=== PATIENT | female | born 1965 | race Caucasian/White ===

== ENCOUNTER → 2019-09-13 09:38 | Outpatient (BNVA) | payer MEDICARE, MEDICAID, SELFPAY | PROVIDERS: Family Provider Family Medicine; PCP Family Medicine; Visit Provider Anesthesiology | DX: G89.29 Other chronic pain (principal); M54.5 Low back pain; F17.210 Nicotine dependence, cigarettes, uncomplicated; Z79.891 Long term (current) use of opiate analgesic; Z71.6 Tobacco abuse counseling | CPT/HCPCS: 99214 ==

== ENCOUNTER → 2020-01-08 14:25 | Outpatient (BNVA) | payer MEDICARE, MEDICAID, SELFPAY | PROVIDERS: Family Provider Family Medicine; PCP Family Medicine; Visit Provider Anesthesiology | DX: G89.29 Other chronic pain (principal); M54.5 Low back pain; M53.3 Sacrococcygeal disorders, not elsewhere classified; F17.210 Nicotine dependence, cigarettes, uncomplicated; Z79.891 Long term (current) use of opiate analgesic; Z71.6 Tobacco abuse counseling | CPT/HCPCS: 99214 ==

== ENCOUNTER → 2020-02-13 09:03 | Outpatient (BNVA) | payer MEDICARE, MEDICAID, SELFPAY | PROVIDERS: Family Provider Family Medicine; PCP Family Medicine; Visit Provider Anesthesiology | DX: G89.29 Other chronic pain (principal); M53.3 Sacrococcygeal disorders, not elsewhere classified; F17.210 Nicotine dependence, cigarettes, uncomplicated | CPT/HCPCS: 77003; G0260; J1030; J3490 ==

== ENCOUNTER 2020-03-14 19:14 | Emergency (ER) | payer MEDICARE, MEDICAID, SELFPAY ==
[2020-03-14 19:21] VITALS: BP 129/87; PULSE 90; RESP 18; TEMP 36.7; O2SAT 95; BMI 29.2
--- NOTE | 2020-03-14 19:26 | XRR_ITS ---
PROCEDURE INFORMATION: Exam: XR Right Hand Exam date and time: 03/14/2020 7:26 PM Age: 54 years old Clinical indication: Injury or trauma; Fall; Initial encounter; Blunt trauma (contusions or hematomas; Finger; Right; Thumb TECHNIQUE: Imaging protocol: XR Right hand. Views: 3 or more views. COMPARISON: No relevant prior studies available. FINDINGS: Bones/joints: Negative for acute bony abnormality. 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 Soft tissues: Normal. XR/XR hand RT min 3V* [id number] IMPRESSION: No acute bone abnormality
--- NOTE | 2020-03-14 19:30 | XRR_ITS ---
PROCEDURE INFORMATION: Exam: XR Left Foot Complete Exam date and time: 03/14/2020 7:51 PM Age: 54 years old Clinical indication: Injury or trauma; Fall; Initial encounter; Abrasion; Foot; Left TECHNIQUE: Imaging protocol: XR Left foot. Views: 3 or more views. COMPARISON: No relevant prior studies available. FINDINGS: Bones/joints: Negative for acute bony abnormality Soft tissues: Normal. XR/XR foot LT min 3V* [id number] IMPRESSION: No acute findings.
--- NOTE | 2020-03-14 19:33 | ED_ITS ---
HPI - Fall General: Chief Complaint: Fall Stated Complaint: RIGHT HAND INJURY Time Seen by Provider: 03/14/20 19:28 Source: patient Mode of arrival: ambulatory Limitations: no limitations History of Present Illness: HPI Narrative: She is a 54-year-old female who states she fell down some stairs at 3 today. She injured her left low hand and right hand. She does have a hematoma at the base of her right thumb. States pain is sharp in nature and rates it a 5 out of 10. She did hit her head but denies any loss of consciousness and denies any vomiting. Denies any neck pain. Associated symptoms-after fall: Denies abdominal pain, chest pain or headache(s) Review of Systems Const: Denies: fever(s), chills, body aches or change in appetite Eyes: Denies: blurry vision or eye discomfort ENMT: Denies: throat pain or dental pain Card: Denies: chest pain Resp: Denies: dyspnea GI: Denies: abdominal pain, nausea, vomiting or diarrhea : Denies: dysuria Musc: Reports: extremity pain Skin/Breast: Denies: rash Neuro: Denies: headache(s) Psych: Denies: depression Yousif/Lymph: Denies: easy bruising All/Imm: Denies: urticaria PFSH ED PFSH: Medical History Chronic lumbosacral pain Chronic SI joint pain Encounter for long-term use of opiate analgesic Opioid contract exists Smoker Tobacco abuse counseling Tonsillectomy planned Surgical History H/O neck surgery H/O tubal ligation History of appendectomy History of carpal tunnel surgery of right wrist Family History Other Bleeding disorder CAD (coronary artery disease) Cancer Social History Smoking and tobacco status: current every day smoker cigarettes Packs smoked per day: 0.5 Alcohol intake: never Physical Exam Const: COMMON NORMALS: no acute distress, patient oriented x3 and healthy appearing HENMT: COMMON NORMALS: normocephalic and atraumatic HEAD & SCALP: normocephalic and atraumatic Eye: COMMON NORMALS: Equal, round and reactive pupils present and EOMs intact bilaterally PUPIL: Yes Equal, round and reactive pupils present Neck/C-Spine: COMMON NORMALS: full ROM and supple Chest: COMMONS NORMALS: normal inspection of the chest and normal palpation of entire chest wall Resp: COMMON NORMALS: normal respiratory effort, No retractions, No use of accessory muscles and clear to auscultation bilaterally AUSCULTATION: clear to auscultation bilaterally Cardio: COMMON NORMALS: regular rate, regular rhythm and No murmurs present (Cardio) RATE: regular rate RHYTHM: regular rhythm GI: COMMON NORMALS: Normal to inspection, nondistended, normoactive bowel sounds present, Soft to palpation, non-tender and no masses PALPATION: Yes Soft to palpation Extremity: COMMON NORMALS: full ROM NARRATIVE EXTREMITY EXAM: Tenderness over left great toe. Hematoma at the base of the right thumb with tenderness. Patient has full range of motion of her hand Neuro: COMMON NORMALS: patient oriented x3, moves all extremities and no focal motor deficits Psych: COMMON NORMALS: mental status grossly normal, Normal thought process present and cooperative THOUGHT PROCESS: Normal thought process present Skin: COMMON NORMALS: no rashes or lesions noted and no wounds GENERAL SKIN EXAM: no rashes or lesions noted Course 2 Vital Signs: Vital signs: Vital Signs Temperature 98.1 F 03/14/20 19:21 Pulse Rate 90 03/14/20 19:21 Respiratory Rate 18 03/14/20 19:21 Blood Pressure 129/87 03/14/20 19:21 Pulse Oximetry 95 03/14/20 19:21 MDM - Fall [facility] Narrative: Medical decision making narrative: Patient presents here with hand and toe contusion from a fall. Patient's x-ray here shows no fracture. She had no major head injury. Patient is stable for discharge and is to return if worsening. Imaging Data^: xr r hand: Attestation: I personally reviewed and interpreted this imaging study as follows: My impression: no acute abnormality xrl foot: Attestation: I personally reviewed and interpreted this imaging study as follows: My impression: no acute abnormality Discharge Plan Discharge Patient Disposition: Home Clinical Impression: Fall Qualifiers: Encounter type: initial encounter Qualified Code(s): W19.XXXA - Unspecified fall, initial encounter Contusion of hand, right Qualifiers: Encounter type: initial encounter Qualified Code(s): S60.221A - Contusion of right hand, initial encounter Condition: Stable Prescriptions: No Action meloxicam 15 mg tablet 15 mg PO DAILY 30 Days Qty: 30 RF: 1 morphine 15 mg tablet 15 mg PO BID PRN (Reason: pain) 30 Days Qty: 60 RF: 0 morphine 15 mg tablet 15 mg PO BID PRN (Reason: pain) 30 Days Qty: 60 RF: 0 omeprazole 20 mg capsule,delayed release(DR/EC) 20 mg PO DAILY RF: 0 ropinirole 1 mg tablet 1 mg PO .BEDTIME RF: 0 citalopram [Celexa] 40 mg tablet 40 mg PO DAILY RF: 0 lisinopril 20 mg tablet 20 mg PO BID RF: 0 clonidine HCl 0.2 mg tablet 0.2 mg PO BID PRNRF: 0 aspirin [Adult Aspirin Regimen] 81 mg tablet,delayed release (DR/EC) 81 mg PO DAILY RF: 0 Discharge Orders: Discharge Order (Routine); Ordered 03/14/20 Ordered By: Mindy Salgado Referrals: Willy Uribe Jr, MD [Primary Care Provider] - 1-3 days Discharge Diet: Advance as tolerated Discharge Activity: Resume usual activity Patient Instructions: Hand Sprain (ED), Fall Prevention (ED) Coding Level of Care Code ED [employer] for Saurabh Fwjosé luis Exam Comprehensive
[2020-03-14] MEDS: naproxen 500 mg Tablet PO (19:36)
== END 2020-03-14 20:00 | disposition home or self-care (01) ==
PROVIDERS: Emergency Provider Emergency Medicine; PCP Family Medicine
DX: S60.221A Contusion of right hand, initial encounter (principal); Z79.82 Long term (current) use of aspirin; F17.210 Nicotine dependence, cigarettes, uncomplicated; W10.8XXA Fall (on) (from) other stairs and steps, initial encounter
CPT/HCPCS: 12345; 73130; 73630; 99281; 99283

== ENCOUNTER → 2020-03-19 09:56 | Outpatient (BNVA) | payer MEDICARE, MEDICAID, SELFPAY | PROVIDERS: PCP Family Medicine; Visit Provider Nurse Practitioner | DX: G89.29 Other chronic pain (principal); M54.5 Low back pain; M53.3 Sacrococcygeal disorders, not elsewhere classified; M70.61 Trochanteric bursitis, right hip; Y93.9 Activity, unspecified; F17.210 Nicotine dependence, cigarettes, uncomplicated; Z79.891 Long term (current) use of opiate analgesic; Z71.6 Tobacco abuse counseling | CPT/HCPCS: 99213; 99214 ==

== ENCOUNTER → 2020-04-09 09:36 | Outpatient (BNVA) | payer MEDICARE, MEDICAID, SELFPAY | PROVIDERS: PCP Family Medicine; Visit Provider Anesthesiology | DX: M70.61 Trochanteric bursitis, right hip (principal); Y93.9 Activity, unspecified; F17.210 Nicotine dependence, cigarettes, uncomplicated | CPT/HCPCS: 20610; 77002; 77003; J1030; J3490 ==

== ENCOUNTER → 2020-05-20 09:55 | Outpatient (BNVA) | payer MEDICARE, MEDICAID, SELFPAY | PROVIDERS: PCP Family Medicine; Visit Provider Anesthesiology | DX: G89.29 Other chronic pain (principal); M54.5 Low back pain; M53.3 Sacrococcygeal disorders, not elsewhere classified; F17.210 Nicotine dependence, cigarettes, uncomplicated; Z79.891 Long term (current) use of opiate analgesic; Z71.6 Tobacco abuse counseling | CPT/HCPCS: 99213; 99214 ==

== ENCOUNTER → 2020-07-24 11:39 | Outpatient (BNVA) | payer MEDICARE, MEDICAID, SELFPAY | PROVIDERS: PCP Family Medicine; Visit Provider Nurse Practitioner | DX: G89.29 Other chronic pain (principal); M54.5 Low back pain; M53.3 Sacrococcygeal disorders, not elsewhere classified; F17.210 Nicotine dependence, cigarettes, uncomplicated; Z79.891 Long term (current) use of opiate analgesic; Z79.899 Other long term (current) drug therapy; Z71.6 Tobacco abuse counseling | CPT/HCPCS: 99213 ==

== ENCOUNTER 2020-10-06 20:00 | Outpatient (CLI) | payer MEDICARE, MEDICAID, SELFPAY | END 2020-10-06 20:01 | disposition home or self-care (01) | LOC: SLEEP 10-07 08:31 | PROVIDERS: PCP Family Medicine; Visit Provider Nurse Practitioner Family | DX: G47.30 Sleep apnea, unspecified (principal); R40.0 Somnolence | CPT/HCPCS: 95810 ==

== ENCOUNTER → 2020-10-08 10:13 | Outpatient (BNVA) | payer MEDICARE, MEDICAID, SELFPAY | PROVIDERS: PCP Nurse Practitioner Family; Visit Provider Nurse Practitioner | DX: G89.29 Other chronic pain (principal); M54.42 Lumbago with sciatica, left side; M53.3 Sacrococcygeal disorders, not elsewhere classified; F17.210 Nicotine dependence, cigarettes, uncomplicated; Z79.891 Long term (current) use of opiate analgesic; Z71.6 Tobacco abuse counseling | CPT/HCPCS: 99213; 99214 ==

== ENCOUNTER → 2020-10-29 08:11 | Outpatient (BNVA) | payer MEDICARE, MEDICAID, SELFPAY | PROVIDERS: PCP Nurse Practitioner Family; Visit Provider Anesthesiology | DX: G89.29 Other chronic pain (principal); M54.5 Low back pain; M53.3 Sacrococcygeal disorders, not elsewhere classified; F17.210 Nicotine dependence, cigarettes, uncomplicated; Z79.891 Long term (current) use of opiate analgesic | CPT/HCPCS: 62323; J1040; J3490 ==

== ENCOUNTER 2020-11-11 20:00 | Outpatient (CLI) | payer MEDICARE, MEDICAID, SELFPAY | END 2020-11-11 20:01 | disposition home or self-care (01) | LOC: SLEEP 11-12 08:28 | PROVIDERS: PCP Nurse Practitioner Family; Visit Provider Nurse Practitioner Family | DX: G47.33 Obstructive sleep apnea (adult) (pediatric) (principal) | CPT/HCPCS: 95811 ==

== ENCOUNTER → 2020-12-16 10:13 | Outpatient (BNVA) | payer MEDICARE, MEDICAID, SELFPAY | PROVIDERS: PCP Nurse Practitioner Family; Visit Provider Anesthesiology | DX: G89.29 Other chronic pain (principal); M54.5 Low back pain; F17.210 Nicotine dependence, cigarettes, uncomplicated; Z79.1 Long term (current) use of non-steroidal anti-inflammatories (NSAID); Z79.891 Long term (current) use of opiate analgesic | CPT/HCPCS: 99213 ==

== ENCOUNTER → 2021-02-19 09:00 | Outpatient (BNVA) | payer MEDICARE, MEDICAID, SELFPAY | PROVIDERS: PCP Nurse Practitioner Family; Visit Provider Anesthesiology | DX: G89.29 Other chronic pain (principal); M54.5 Low back pain; F17.210 Nicotine dependence, cigarettes, uncomplicated; Z79.891 Long term (current) use of opiate analgesic | CPT/HCPCS: 99213 ==

== ENCOUNTER → 2021-04-23 09:20 | Outpatient (BNVA) | payer MEDICARE, MEDICAID, SELFPAY | PROVIDERS: PCP Nurse Practitioner Family; Visit Provider Anesthesiology | DX: G89.29 Other chronic pain (principal); M54.5 Low back pain; F17.210 Nicotine dependence, cigarettes, uncomplicated; Z79.891 Long term (current) use of opiate analgesic; Z79.1 Long term (current) use of non-steroidal anti-inflammatories (NSAID) | CPT/HCPCS: 99213 ==

== ENCOUNTER → 2021-05-20 10:26 | Outpatient (BNVA) | payer MEDICARE, MEDICAID, SELFPAY | PROVIDERS: PCP Family Medicine; Visit Provider Anesthesiology | DX: G89.29 Other chronic pain (principal); M54.50 Low back pain, unspecified; F17.210 Nicotine dependence, cigarettes, uncomplicated; Z71.6 Tobacco abuse counseling; Z79.891 Long term (current) use of opiate analgesic; Z79.1 Long term (current) use of non-steroidal anti-inflammatories (NSAID) | CPT/HCPCS: 99213 ==

== ENCOUNTER → 2021-06-03 09:41 | Outpatient (BNVA) | payer MEDICARE, MEDICAID, SELFPAY | PROVIDERS: PCP Family Medicine; Visit Provider Anesthesiology | DX: G89.29 Other chronic pain (principal); M51.16 Intervertebral disc disorders with radiculopathy, lumbar region; Z79.891 Long term (current) use of opiate analgesic | CPT/HCPCS: 62323; J1040; J3490 ==

== ENCOUNTER 2021-12-22 09:49 | Outpatient (CLI) | payer MEDICARE, MEDICAID, SELFPAY ==
--- NOTE | 2021-12-22 09:59 | MM_ITS ---
WS: [id number] SCREENING DIGITAL BREAST TOMOSYNTHESIS MAMMOGRAM WITH CAD HISTORY: SCREENING COMPARISON: 01/11/2016 Bilateral CC and MLO with tomosynthesis and synthetic mammography submitted. Computer aided detection analyzed. Breast composition: There are scattered areas of fibroglandular density. Well-rounded 7 x 8 mm mass i n the upper-outer quadrant of the LEFT breast at a middle depth. Center is lucent with the margin of this mass being mildly hyper dense. Mass localizes on the CC image and on the MLO /. No anthony picious calcifications. Asymmetry in the inferior anterior RIGHT breast is stable. MM/[place] [id number] IMPRESSION: BI-RADS: 0-Incomplete: Need additional imaging evaluation FOLLOW UP: Need Additional Imaging LEFT breast: Spot compression views (CC and MLO). True ML. Ultrasound to follow if abnormality persists.
== END 2021-12-22 09:50 | disposition home or self-care (01) ==
LOC: RAD 09:50
PROVIDERS: PCP Family Medicine; Visit Provider Family Medicine
DX: Z12.31 Encounter for screening mammogram for malignant neoplasm of breast (principal)
CPT/HCPCS: 77063; 77067

== ENCOUNTER → 2022-01-14 09:26 | Outpatient (BNVA) | payer MEDICARE, MEDICAID, SELFPAY | PROVIDERS: PCP Family Medicine; Referring Provider Family Medicine; Visit Provider Urology | DX: N28.1 Cyst of kidney, acquired (principal); N39.9 Disorder of urinary system, unspecified | CPT/HCPCS: 81003; 99203 ==

== ENCOUNTER 2022-01-24 08:57 | Outpatient (CLI) | payer MEDICARE, MEDICAID, SELFPAY ==
--- NOTE | 2022-01-24 09:14 | MM_ITS ---
WS: [id number] ADDITIONAL VIEWS LEFT MAMMOGRAM with tomosynthesis. LEFT BREAST ULTRASOUND HISTORY: ABNORMAL MAMMO COMPARISON: 12/22/2021, 01/11/2016 LEFT MAMMOGRAM: Spot compression views and true ML with tomosynthesis and sympathetic mammography. Persistent nodule measuring 8 mm in the lateral LEFT breast near the 2-3 o'clock axis. Nodule is at a middle depth. There are a few scattered lucencies within this nodule suggesting fat which would beba jolanta a benign lesion. This may be an oil cyst with prior trauma. LEFT BREAST ULTRASOUND 2-D and color Doppler imaging submitted. Ultrasound along the 3:00 axis of the LEFT breast demonstrates 2 hyperechoic nodules which are nearly isodense to the adjacent breast tissue. One of these nodules at the 2:00 and one is at 3:00. The la rgest is slightly ovoid measuring 9 x 4 x 8 mm. The smaller more round nodule measures 7 x 5 x 8 mm. The smaller nodule at 3:00, 3 cm from the nipple is more likely to correspond to the mammographic abn ormality. MM/[place] [id number] IMPRESSION: BI-RADS: 3-Probably Benign FOLLOW UP: 6 Month Follow-up Recommend 6 month follow-up of the LEFT breast nodule as it is new. I favor thi s is probably benign as there is fat present within the lesion. Suggest 6 month follow-up and possible ultrasound.
--- NOTE | 2022-01-24 10:07 | US_ITS ---
WS: [id number] ADDITIONAL VIEWS LEFT MAMMOGRAM with tomosynthesis. LEFT BREAST ULTRASOUND HISTORY: ABNORMAL MAMMO COMPARISON: 12/22/2021, 01/11/2016 LEFT MAMMOGRAM: Spot compression views and true ML with tomosynthesis and sympathetic mammography. Persistent nodule measuring 8 mm in the lateral LEFT breast near the 2-3 o'clock axis. Nodule is at a middle depth. There are a few scattered lucencies within this nodule suggesting fat which would beba jolanta a benign lesion. This may be an oil cyst with prior trauma. LEFT BREAST ULTRASOUND 2-D and color Doppler imaging submitted. Ultrasound along the 3:00 axis of the LEFT breast demonstrates 2 hyperechoic nodules which are nearly isodense to the adjacent breast tissue. One of these nodules at the 2:00 and one is at 3:00. The la rgest is slightly ovoid measuring 9 x 4 x 8 mm. The smaller more round nodule measures 7 x 5 x 8 mm. The smaller nodule at 3:00, 3 cm from the nipple is more likely to correspond to the mammographic abn ormality. US/US breast LT limited* [id number] IMPRESSION: BI-RADS: 3-Probably Benign FOLLOW UP: 6 Month Follow-up Recommend 6 month follow-up of the LEFT breast nodule as it is new. I favor thi s is probably benign as there is fat present within the lesion. Suggest 6 month follow-up and possible ultrasound.
== END 2022-01-24 08:58 | disposition home or self-care (01) ==
LOC: RAD 08:59
PROVIDERS: PCP Family Medicine; Visit Provider Family Medicine
DX: R92.8 Other abnormal and inconclusive findings on diagnostic imaging of breast (principal); N63.20 Unspecified lump in the left breast, unspecified quadrant
CPT/HCPCS: 76642; 77061

== ENCOUNTER 2022-01-31 08:51 | Outpatient (CLI) | payer MEDICARE, MEDICAID, SELFPAY ==
--- NOTE | 2022-01-31 09:07 | MR_ITS ---
WS: [id number] MRI LUMBAR SPINE NONCONTRAST TECHNIQUE: Sagittal T1, T2 and STIR imaging. Axial T1 and T2 imaging. CLINICAL INFORMATION: LUMBAR DDD COMPARISON: None. FINDINGS: Mild lumbar curve. No acute compression. Chronic appearing anterior wedging at L1 unchanged since 6. Disc space narrowing worse L5-S1 progressed since 2005. L1-L2: Mild facet arthropathy. Spinal canal and foramen are patent. L2-L3: Minimal annular bulging. Mild facet arthropathy. Spinal canal and foramen are patent. L3-L4: Mild annular bulging. Slight narrowing of the ventral thecal sac. Mild facet arthropathy. Spin al canal and foramen are patent. L4-L5: Mild annular bulging. Moderate central canal stenosis. Impingement traversing LEFT L5 nerve ro ot in the subarticular recess. Moderate facet arthropathy. Foramen are patent. Tiny RIGHT eccentric a nnular fissure. L5-S1: Mild annular bulging. Slight impingement traversing LEFT greater than RIGHT S1 nerve roots in the subarticular recess. LEFT eccentric disc osteophyte complex slightly impinges the exiting LEFT L5 nerve root. Mild RIGHT foraminal narrowing. Moderate facet arthropathy. Small RIGHT renal cyst. Prior ACDF cervical spine. Small central disc protrusions mid thoracic spine at T5-T6 and T6-T7. Slight contact of the thoracic cord. MR/MR lumbar spine wo con* [id number] IMPRESSION: 1. Mild lumbar curve. Chronic anterior wedging at L1 unchanged since 2006. No acute compression fractures. 2. Moderate central canal stenosis L4-L5 with impingement on the LEFT greater than RIGHT traversing L5 nerve roots. This is new since 2005 3. Annular bulging L5-S1 with slight retrolisthesis. Slight impingement olivier sing LEFT greater than RIGHT S1 nerve roots. 4. LEFT eccentric disc bulge L5-S1 slightly impinges the exiting LEFT L5 nerve root. 5. Moderate facet arthropathy L4-L5 and L5-S1. 6. Small central disc protrusion mid thoracic spine with slight contact of the thoracic cord at T5-T6 and T6-T7.
== END 2022-01-31 08:52 | disposition home or self-care (01) ==
PROVIDERS: PCP Family Medicine; Visit Provider General Practice
DX: M51.36 Other intervertebral disc degeneration, lumbar region (principal)
CPT/HCPCS: 72148

== ENCOUNTER 2022-07-18 12:15 | Outpatient (CLI) | payer MEDICARE, MEDICAID, SELFPAY ==
--- NOTE | 2022-07-18 11:45 | CTR_ITS ---
PROCEDURE INFORMATION: Exam: CT Abdomen And Pelvis Without And With Contrast Exam date and time: 07/18/2022 12:45 PM Age: 57 years old Clinical indication: Abnormal findings; Abnormal radiologic finding of the abdomen; Radiologic exam and body structure: Renal cyst, US renal; Prior surgery; Surgery type: Appy, tubal; Additional info: Renal cyst, CT abd/pel renal mass protocol on 07/18/22 prior to patients TECHNIQUE: Imaging protocol: Computed tomography of the abdomen and pelvis without and with contrast. 3D rendering (Not supervised by radiologist): MIP and/or 3D reconstructed images were created by the technologist. Radiation optimization: All CT scans at this facility use at least one of these dose optimization techniques: automated exposure control; mA and/or kV adjustment per patient size (includes targeted exams where dose is matched to clinical indication); or iterative reconstruction. Contrast material: OMNIPAQUE 350; Contrast volume: 95 ml; Contrast route: INTRAVENOUS (IV); COMPARISON: MR abdomen wo/w con* [id number] 09/26/2021 4:13 PM RADIATION DOSE METRICS: Total DLP (mGy-cm): 3794.13 FINDINGS: Lungs: Lung bases are clear. Liver: Normal. No mass. Gallbladder and bile ducts: Gallbladder has been removed. Bile ducts are not appreciably dilated. Pancreas: Unremarkable. Main pancreatic duct is not significantly dilated. Spleen: Normal. No splenomegaly. Adrenal glands: Normal. No mass. Kidneys and ureters: There is again demonstrated a small enhancing cortical lesion arising from the anterior cortex mid pole left kidney measuring proxy 1.2 cm unchanged. There are numerous subcentimeter cortical cysts both kidneys too small to adequately characterize but likely benign. Stomach and bowel: There is again demonstrated some fluid-filled mildly dilated small bowel loops within the mid abdomen with mild inflammatory bowel wall thickening and adjacent mesenteric vascular engorgement overall improved from previous examination and suggestive of inflammatory bowel disease. Appendix: No evidence of appendicitis. Intraperitoneal space: Unremarkable. No free air. No significant fluid collection. Vasculature: Unremarkable. No abdominal aortic aneurysm. Lymph nodes: There is mild mesenteric lymphadenopathy within the mid abdomen that is stable and presumed reactive in nature secondary to the bowel disease. Urinary bladder: Unremarkable as visualized. Reproductive: Unremarkable as visualized. Bones/joints: There is a chronic wedge-shaped compression fracture of L1, unchanged. There is a mild compression fracture involving the superior endplate of L4 that has developed from previous exam. Soft tissues: Unremarkable. CT/CT abdomen pelvis wo/w [id number] IMPRESSION: 1. Stable small enhancing cortical lesion midpole left kidney presumed neoplastic in nature but does not appear aggressive. Continued periodic surveillance recommended. 2. Changes involving small bowel loops within the mid abdomen improved from previous examination in suspicious for inflammatory bowel disease. 3. Mild mesenteric lymphadenopathy mid abdomen, stable likely secondary to the bowel disease. 4. There are 2 compression fractures lumbar spine 1 of which has developed from previous exam. 5. Additional chronic findings as above.
[2022-07-18] MEDS: iohexol 350 mg/mL 500 mL Btl (per mL) IV (12:53)
== END 2022-07-18 12:16 | disposition home or self-care (01) ==
PROVIDERS: PCP Family Medicine; Visit Provider Urology
DX: N28.1 Cyst of kidney, acquired (principal); N28.89 Other specified disorders of kidney and ureter
CPT/HCPCS: 74178; 81003; 99213; Q9967

== ENCOUNTER 2022-12-27 12:06 | Outpatient (CLI) | payer MEDICARE, MEDICAID, SELFPAY ==
--- NOTE | 2022-12-27 12:12 | MM_ITS ---
WS: [id number] DIAGNOSTIC BILATERAL DIGITAL BREAST TOMOSYNTHESIS MAMMOGRAPHY WITH CAD LEFT breast ultrasound, limited HISTORY: 6[facility] COMPARISON: 01/24/2022, 12/23/2019 2. 01/11/2016 TECHNIQUE: Bilateral craniocaudad, mediolateral oblique, and mediolateral views are submitted with to mosmegan and CORINNA. Computer aided detection utilized. Breast composition: There are scattered areas of fibroglandular density. Well-circumscribed nodule up per-outer quadrant of the LEFT breast near 10:00 at a middle depth is reidentified. I suspect this is probably an oil cyst and appears slightly smaller in size measuring 7.6 mm. LEFT breast ultrasound, limited. Ultrasound is directed to the upper outer quadrant of the LEFT breast. There is a hyperechoic mass at 2:00, 3 cm the nipple measuring 10 x 10 x 0.8 mm Corresponding to the mammographic finding and the prior ultrasound. There is an additional small cyst . Very small cyst at 2:00, 3 cm from the nipple with a maximum diameter 5 mm. MM/[place] [id number] IMPRESSION: BI-RADS: 2-Benign FOLLOW UP: 1 Year Follow-up No increase in size of the mass in the upper-outer quadrant of the LEFT breast. On today's imaging study this is probably an oil cyst.
== END 2022-12-27 12:07 | disposition home or self-care (01) ==
LOC: RAD 12:08
PROVIDERS: PCP Family Medicine; Visit Provider Family Medicine
DX: N63.21 Unspecified lump in the left breast, upper outer quadrant (principal)
CPT/HCPCS: 76642; 77062; G0279

== ENCOUNTER 2022-12-31 17:52 | Emergency (ER) | payer MEDICARE, MEDICAID, SELFPAY ==
[2022-12-31 18:04] VITALS: BP 167/101; PULSE 81; RESP 16; TEMP 36.6; O2SAT 99; BMI 34.3
[2022-12-31 18:24] VITALS: BP 175/117; PULSE 120; RESP 14; O2SAT 96
--- NOTE | 2022-12-31 18:33 | W.ED.DIZZY ---
HPI - Dizziness General: Chief Complaint: Dizziness Stated Complaint: Dizziness, Nausea, High BP Time Seen by Provider: 12/31/22 18:13 Source: patient Mode of arrival: ambulatory Limitations: no limitations History of Present Illness: HPI Narrative: 57-year-old female states that since yesterday she has had severe dizziness. She states when she rolled out of the bed she had dizziness and vomited. She states that it is continued throughout the day today. She states that its much worse when walking with sudden movements especially when she turns her head to the right she states that as long as she lays still she has no dizziness. Denies any fevers denies any headache. Associated symptoms: Reports nausea and vomiting; Denies chest pain or chills Review of Systems Const: Denies: fever(s) or chills Eyes: Denies: blurry vision or eye discomfort ENMT: Denies: throat pain or dental pain Card: Denies: chest pain Resp: Denies: dyspnea GI: Reports: nausea and vomiting; Denies: abdominal pain or diarrhea : Denies: dysuria Musc: Denies: neck pain or back pain Skin/Breast: Denies: rash Neuro: Reports: vertigo PFSH ED PFSH: Medical History Chronic lumbosacral pain Chronic SI joint pain Encounter for long-term (current) use of NSAIDs Encounter for long-term (current) use of NSAIDs Encounter for long-term use of opiate analgesic Left renal mass Opioid contract exists Smoker Tobacco abuse counseling Tonsillectomy planned Surgical History H/O neck surgery H/O tubal ligation History of appendectomy History of carpal tunnel surgery of right wrist Family History Mother , at age 75 Hypertension Blood clots in brain Father Lung disease Seizures Heart disease Other Bleeding disorder CAD (coronary artery disease) Cancer Social History Smoking and tobacco status: current every day smoker cigarettes Packs smoked per day: 1 Alcohol intake: never Substance/Drug Use: never Lives independently: Yes Marital status: Current occupational status: disabled Physical Exam Const: COMMON NORMALS: no acute distress, patient oriented x3 and healthy appearing HENMT: COMMON NORMALS: normocephalic and atraumatic HEAD & SCALP: normocephalic and atraumatic Eye: COMMON NORMALS: Equal, round and reactive pupils present and EOMs intact bilaterally PUPIL: Yes Equal, round and reactive pupils present OTHER: Beating nystagmus when she looks to the right dizziness with sudden movements of her head Neck/C-Spine: COMMON NORMALS: full ROM and supple Chest: COMMONS NORMALS: normal inspection of the chest and normal palpation of entire chest wall Resp: COMMON NORMALS: normal respiratory effort, No retractions, No use of accessory muscles and clear to auscultation bilaterally AUSCULTATION: clear to auscultation bilaterally Cardio: COMMON NORMALS: regular rate, regular rhythm and No murmurs present (Cardio) RATE: regular rate RHYTHM: regular rhythm GI: COMMON NORMALS: Normal to inspection, nondistended, normoactive bowel sounds present, Soft to palpation, non-tender and no masses PALPATION: Yes Soft to palpation Extremity: COMMON NORMALS: normal to inspection and full ROM Neuro: COMMON NORMALS: patient oriented x3, moves all extremities and no focal motor deficits CRANIAL NERVES: Yes CN normal except as noted SPEECH: speech normal MOTOR EXAM: 5/5 motor strength present throughout Psych: COMMON NORMALS: mental status grossly normal, Normal thought process present and cooperative THOUGHT PROCESS: Normal thought process present Skin: COMMON NORMALS: no rashes or lesions noted and no wounds GENERAL SKIN EXAM: no rashes or lesions noted Course Vital Signs: Vital signs: Vital Signs Temperature 97.9 F 12/31/22 18:04 Pulse Rate 66 12/31/22 20:39 Respiratory Rate 18 12/31/22 20:39 Blood Pressure 152/102 12/31/22 20:39 Pulse Oximetry 91 12/31/22 20:39 Oxygen Delivery Me thod Room Air 12/31/22 18:24 MDM - Dizziness Medical Decision Making Patient presents with dizziness is likely peripheral in nature its much worse with sudden movements and standing. She feels much improved after Zofran meclizine and Valium she is able to ambulate without any ataxia head CT is normal we will discharge her home with Antivert and Valium inform if she has any worsening symptoms she is to return she has no signs of a stroke here she is stable for discharge she is to follow-up with PCP and return if worsening. Medical Records I reviewed the patient's medical records. Lab Data I reviewed the patient's lab results. 12/31/22 18:39 12/31/22 18:[address] 12/31/22 19:41 IMPRESSION: There are senescent changes of the brain as described above. No evidence for large acute ischemic infarction or acute intracranial injury. Laboratory Results WBC 9.4 10^3/uL (4.0-10.0) 12/31/22 18:39 RBC 4.85 10^6/uL (4.1-5.3) 12/31/22 18:39 Hgb 15.9 g/dL (11.5-15.3) H 12/31/22 18:39 Hct 47.2 % (37.0-47.0) H 12/31/22 18:39 MCV 97.3 fl (81-99) 12/31/22 18:39 MCH 32.8 pg (28.0-34.0) 12/31/22 18: MCHC 33.7 g/dL (30.0-36.0) 12/31/22 18:39 RDW 12.9 % (12.1-15.1) 12/31/22 18:39 Plt Count 366 10^3/cmm (130-400) 12/31/22 18:39 MPV 9.5 fL (7.4-10.4) 12/31/22 18:39 Neut % (Auto) 68.1 % 12/31/22 18:39 Lymph % (Auto) 24.8 % 12/31/22 18:39 Antelope % (Auto) 5.8 % 12/31/22 18:39 Eos % (Auto) 0.6 % 12/31/22 18:39 Baso % (Auto) 0.5 % 12/31/22 18:39 Neut # (Auto) 6.40 10^3/uL (1.8-7.7) 12/31/22 18:39 Lymph # (Auto) 2.3 10^3/uL (0.8-4.8) 12/31/22 18:39 Antelope # (Auto) 0.6 10^3/uL (0.2-0.9) 12/31/22 18:39 Eos # (Auto) 0.1 10^3/uL (0.0-0.8) 12/31/22 18:39 Baso # (Auto) 0.1 10^3/uL (0.0-0.1) 12/31/22 18:39 Nucleated RBC % (auto) 0 % 12/31/22 18:39 Nucleated RBCs # 0.0 /100WBC 12/31/22 18:39 Sodium 138 mmol/L (136-145) 12/31/22 18:39 Potassium 3.4 mmol/L (3.5-5.1) L 12/31/22 18:39 Chloride 102 mmol/L (98-107) 12/31/22 18:39 Carbon Dioxide 21 mmol/L (22-29) L 12/31/22 18:39 Anion Gap 18.4 (5-19) 12/31/22 18:39 BUN 13 mg/dL (6-20) 12/31/22 18:39 Creatinine 0.7 mg/dL (0.5-0.9) 12/31/22 18:39 GFR Calculation 86.2 mL/min (90-130) L 12/31/22 18:39 Glucose 93 mg/dL (65-115) 12/31/22 18:39 Calculated Osmolality 286 mOsm/kg (285-295) 12/31/22 18:39 Calcium 9.3 mg/dL (8.5-10.5) 12/31/22 18:39 Total Bilirubin 0.4 mg/dL (0.15-1.2) 12/31/22 18:39 AST 24 U/L (0-32) 12/31/22 18:39 ALT 21 U/L (0-33) 12/31/22 18:39 Alkaline Phosphatase 123 U/L (35-105) H 12/31/22 18:39 Total Protein 7.6 g/dL (6.6-8.7) 12/31/22 18:39 Albumin 4.4 g/dL (3.5-5.2) 12/31/22 18:39 Globulin 3.2 g/dL (1.3-4.6) 12/31/22 18:39 Lipase 33 U/L (13-60) 12/31/22 18:39 Discharge Plan Discharge Patient Disposition: Home Clinical Impression: Vertigo Condition: Stable Prescriptions: New Antivert 50 mg tablet 50 mg PO BID PRN (Reason: dizziness) Qty: 20 0RF Valium 2 mg tablet 2 mg PO TID PRN (Reason: dizziness) Qty: 10 0RF No Action duloxetine 30 mg capsule,delayed release(DR/EC) 30 mg PO DAILY morphine 15 mg tablet 15 mg PO BID PRN (Reason: pain) 30 Days Qty: 60 0RF Rx Instructions: Fill on or after 05/07/21 morphine 15 mg tablet 15 mg PO BID PRN (Reason: pain) 30 Days Qty: 60 0RF Rx Instructions: Fill on or after 06/07/21 meloxicam 15 mg tablet 15 mg PO DAILY 30 Days Qty: 30 1RF omeprazole 20 mg capsule,delayed release(DR/EC) 20 mg PO DAILY ropinirole 1 mg tablet 1 mg PO .BEDTIME lisinopril 20 mg tablet 20 mg PO BID clonidine HCl 0.2 mg tablet 0.2 mg PO BID PRN Rx Instructions: IF SYSTOLIC BP IS > 180 aspirin [Adult Aspirin Regimen] 81 mg tablet,delayed release (DR/EC) 81 mg PO DAILY potassium gluconate 500 mg (83 mg) tablet 500 mg PO DAILY amlodipine 5 mg tablet 5 mg PO DAILY Discharge Orders: Discharge ED (Routine); Ordered 12/31/22 Ordered By: Mindy Salgado Referrals: Regina Archer MD [Primary Care Provider] - 1-3 days Discharge Diet: Advance as tolerated Discharge Activity: Resume usual activity Patient Instructions: Vertigo (ED), Benign Paroxysmal Positional Vertigo (ED) Coding Level of Care Code ED 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
[2022-12-31] MEDS: meclizine 25 mg tablet 50 MG PO (18:47)
[2022-12-31] MEDS: ondansetron 2 mg/ML SDV 2 mL 4 MG IVP ×2 (18:47→20:32)
[2022-12-31] MEDS: sodium chloride 0.9% 1,000 ML 999 ML IV (18:47)
[2022-12-31 18:51] LABS: Basophils # 0.1 10^3/uL (0.0-0.1); Basophils % 0.5 %; Eosinophils # 0.1 10^3/uL (0.0-0.8); Eosinophils % 0.6 %; Hematocrit 47.2 % (37.0-47.0); Hemoglobin 15.9 g/dL (11.5-15.3); Lymphocytes # 2.3 10^3/uL (0.8-4.8); Lymphocytes % 24.8 %; Mean Corpuscular HGB Conc 33.7 g/dL (30.0-36.0); Mean Corpuscular Hemoglobin 32.8 pg (28.0-34.0); Mean Corpuscular Volume 97.3 fl (81-99); Mean Platelet Volume 9.5 fL (7.4-10.4); Monocytes # 0.6 10^3/uL (0.2-0.9); Monocytes % 5.8 %; Neutrophils % 68.1 %; Nucleated Red Blood Cells % 0 %; Platelet Count 366 10^3/cmm (130-400); Red Blood Count 4.85 10^6/uL (4.1-5.3); Red Cell Distribution Width 12.9 % (12.1-15.1); White Blood Count 9.4 10^3/uL (4.0-10.0)
[2022-12-31 19:03] LABS: Alanine Aminotransferase 21 U/L (0-33); Albumin Level 4.4 g/dL (3.5-5.2); Alkaline Phosphatase 123 U/L (35-105); Anion Gap 18.4 (5-19); Aspartate Amino Transferase 24 U/L (0-32); Blood Urea Nitrogen 13 mg/dL (6-20); Calcium 9.3 mg/dL (8.5-10.5); Carbon Dioxide 21 mmol/L (22-29); Chloride 102 mmol/L (98-107); Creatinine Clr Calc Pharmacy 96.7364; Globulin 3.2 g/dL (1.3-4.6); Glomerular Filtration Rate 86.2 mL/min (90-130); Glucose 93 mg/dL (65-115); Lipase 33 U/L (13-60); Osmolality Calculated 286 mOsm/kg (285-295); Potassium 3.4 mmol/L (3.5-5.1); Sodium 138 mmol/L (136-145); Total Bilirubin 0.4 mg/dL (0.15-1.2); Total Protein 7.6 g/dL (6.6-8.7)
[2022-12-31 19:16] VITALS: BP 176/93; PULSE 70; RESP 16; O2SAT 97
--- NOTE | 2022-12-31 19:41 | CTR_ITS ---
PROCEDURE INFORMATION: Exam: CT Head Without Contrast Exam date and time: 12/31/2022 7:50 PM Age: 57 years old Clinical indication: Dizziness; TECHNIQUE: Imaging protocol: Computed tomography of the head without contrast. Radiation optimization: All CT scans at this facility use at least one of these dose optimization techniques: automated exposure control; mA and/or kV adjustment per patient size (includes targeted exams where dose is matched to clinical indication); or iterative reconstruction. REPORTING DATA: Count of CT and Cardiac NM exams in prior 12 months: This patient has received [address] and 0 known cardiac nuclear medicine studies in the 12 months prior to the current study. COMPARISON: No relevant prior studies available. RADIATION DOSE METRICS: Total DLP (mGy-cm): 1146.88 FINDINGS: Brain: Benign globus pallidus calcifications are present. There are chronic lacunar infarcts in the right lentiform nucleus, anterior limb of the right internal capsule, and right caudate.No evidence for large acute ischemic infarction. Please note acute ischemia can be occult by head CT. No evidence for acute intracranial hemorrhage. Cerebral ventricles: No ventriculomegaly. Paranasal sinuses: Visualized sinuses are unremarkable. No fluid levels. Mastoid air cells: Visualized mastoid air cells are well aerated. Bones/joints: Unremarkable. No acute fracture. Soft tissues: Unremarkable. Vasculature: Calcified plaque is present within the carotid siphons. CT/CT head wo con* [id number] IMPRESSION: There are senescent changes of the brain as described above. No evidence for large acute ischemic infarction or acute intracranial injury.
[2022-12-31] MEDS: diazePAM 5 mg Tablet PO (19:44)
[2022-12-31 20:39] VITALS: BP 152/102; PULSE 66; RESP 18; O2SAT 91
== END 2022-12-31 21:01 | disposition home or self-care (01) ==
PROVIDERS: Emergency Provider Emergency Medicine; PCP Family Medicine
DX: R42 Dizziness and giddiness (principal); Z79.82 Long term (current) use of aspirin; F17.210 Nicotine dependence, cigarettes, uncomplicated
CPT/HCPCS: 70450; 80053; 83690; 85025; 96361; 96374; 96376; 99285; J2405; J7030; J8597

== ENCOUNTER → 2023-01-09 08:40 | Outpatient (BNVA) | payer MEDICARE, MEDICAID, SELFPAY | PROVIDERS: PCP Family Medicine; Visit Provider Anesthesiology Pain Medicine | DX: G89.29 Other chronic pain (principal); M54.16 Radiculopathy, lumbar region; M48.061 Spinal stenosis, lumbar region without neurogenic claudication | CPT/HCPCS: 99204 ==

== ENCOUNTER 2023-01-25 11:12 | Outpatient (CLI) | payer MEDICARE, MEDICAID, SELFPAY ==
--- NOTE | 2023-01-25 11:45 | MR_ITS ---
WS: [id number] MRI LUMBAR SPINE NONCONTRAST HISTORY: M54.16 - Radiculopathy, lumbar region COMPARISON: 01/31/2022 TECHNIQUE: Sagittal and axial multisequence imaging is submitted. Chronic L1 compression fracture by 20%. No marrow edema. New compression fracture at L4 since 02/01/20 22. Impression approximately 40% with slight retropulsion of the posterior superior endplate. Marrow edema remaining within the vertebral body and the posterior elements. Additional marrow edema in the LEFT L5 posterior elements. Disc spaces and vertebral body heights are well-preserved. Conus terminates normally at L1-2 disc level. L1-L2: Mild facet arthritis. No stenosis. L2-L3: Very mild narrowing subarticular recesses. No high-grade stenosis. L3-L4: Diffuse annular disc bulging with osteophytic ridging. Marked ligamentum flavum and facet arth ritis. Retropulsion of the posterior superior endplate by 4 mm contacting the ventral thecal sac and the nerve roots. Vertebral body retropulsion extends into the RIGHT subarticular recess. Severe centr al, bilateral subarticular recess and moderate to severe RIGHT foraminal stenosis. Mild LEFT foramina l stenosis. L4-L5: Mild annular disc bulging with ligamentum flavum and facet arthritis. Mild central and bilater al subarticular recess stenosis. There is encroachment upon the traversing L5 nerve roots. L5-S1: Diffuse annular disc bulging with ligamentum flavum and facet arthritis. Disc bulging versus b road-based disc protrusion in the LEFT foramen. Moderate central with subarticular recess and LEFT fo raminal stenosis. Mild RIGHT foraminal stenosis. There is disc contacting the S1 nerve roots and the LEFT exiting L5 nerve root. Paravertebral soft tissues are negative. MR/MR lumbar spine wo con* [id number] IMPRESSION: 1. New L4 compression fracture by 40% with retropulsion of the posterior super ior endplate by 4 mm. Fracture is new since 01/31/2022 and there is still edema within the vertebral body. L4 fracture was present on a CT from 07/18/2022 but does appear progressed. 2. Mild central and bilateral subarticular recess stenosis at L4-5 with disc e ncroachment upon the traversing L5 nerve roots. 3. Severe central, bilateral subarticular recess and moderate to severe RIGHT foraminal stenosis at L3-4. Stenosis in part due to the retropulsion of the L4 superior endplate. Most significant encroachment into the RIGHT subarticular re cess. 4. Moderate central with subarticular recess and LEFT foraminal stenosis at L5 -S1. Disc contacts the S1 nerve roots in the LEFT exiting L5 nerve root. 5. Chronic L1 compression fracture of 20%.
== END 2023-01-25 11:13 | disposition home or self-care (01) ==
LOC: RAD 11:14
PROVIDERS: PCP Family Medicine; Visit Provider Anesthesiology Pain Medicine
DX: M54.16 Radiculopathy, lumbar region (principal); M48.56XA Collapsed vertebra, not elsewhere classified, lumbar region, initial encounter for fracture; M48.061 Spinal stenosis, lumbar region without neurogenic claudication; M48.07 Spinal stenosis, lumbosacral region
CPT/HCPCS: 72148; 99204

== ENCOUNTER → 2023-01-30 12:45 | Outpatient (BNVA) | payer MEDICARE, MEDICAID, SELFPAY | PROVIDERS: PCP Family Medicine; Visit Provider Anesthesiology Pain Medicine | DX: G89.29 Other chronic pain (principal); M54.16 Radiculopathy, lumbar region | CPT/HCPCS: 64483; 64484; J1100; J3490 ==

== ENCOUNTER → 2023-02-14 10:33 | Outpatient (BNVA) | payer MEDICARE, MEDICAID, SELFPAY | PROVIDERS: PCP Family Medicine; Referring Provider Anesthesiology Pain Medicine; Visit Provider Physician Assistant | DX: S32.040A Wedge compression fracture of fourth lumbar vertebra, initial encounter for closed fracture (principal); G89.29 Other chronic pain; M54.16 Radiculopathy, lumbar region; W19.XXXA Unspecified fall, initial encounter | CPT/HCPCS: 36415; 72100; 80053; 85025; 99203 ==

== ENCOUNTER 2023-02-20 06:41 | Day surgery (SDC) | payer MEDICARE, MEDICAID, SELFPAY ==
[2023-02-17 09:51] VITALS: BMI 34.3
[2023-02-20] VITALS (12 sets, daily range): BP systolic 105–170; BP diastolic 73–109; PULSE 66–89; RESP 14–18; TEMP 36.1–36.3; O2SAT 93–100
[2023-02-20] MEDS: sodium chloride 0.9% 1,000 ML 30 ML IV (07:15)
--- NOTE | 2023-02-20 08:29 | W.PM.OPSUD ---
Surgery/Procedure H&P Update DATE OF PROCEDURE: February 20, 2023 DATE H&P PERFORMED: 02/14/23 H&P UPDATE INFORMATION: I have reviewed H&P completed within last 30 days, I have examined patient prior to procedure and No changes to prior documentation PLANNED PROCEDURE: Operation Date: 02/20/23 08:15 Proposed Procedures p L-4 KYPHOPLASTY:[id number],M54.5,G89.29,M53.3(Not Applicable) - Edis Lemons DO
--- NOTE | 2023-02-20 08:30 | P.ANESASSM_ITS ---
Pre-Anesthetic Assessment Height/Weight: Height 1.63 m Weight 90.718 kg Temp Pulse Resp BP Pulse Ox O2 Del Method 97 F L 80 16 156/79 97 Room Air 02/20/23 06:55 02/20/23 06:55 02/20/23 06:55 02/20/23 06:55 02/20/23 06:55 02/20/23 06:59 Operation Date: 02/20/23 08:15 Proposed Procedures p L-4 KYPHOPLASTY:51646,M54.5,G89.29,M53.3(Not Applicable) - Edis Lemons DO Familial anesthetic complications: none Was Beta Marc taken within 24 hours: N/A Was Clonidine taken within 24 hours: N/A Last intake: Intake Last Liquid Date 02/19/23 Last Liquid Time 21:00 Last Solid Date 02/19/23 Last Solid Time 12:00 Social No alcohol and No tobacco Exam alert, oriented x 3, clear to auscultation bilaterally and regular rate & rhythm Airway Submandibular: within normal limits Cervical ROM: within normal limits Mallampati: Class II Dentition: false CV/HEM Hypertension GI Gastroesophageal Reflux Disease Metabolic Morbid Obesity [facility] [place] Lower Back Pain and Osteoarthritis/DJD Neuropsych chronic pain/opioid Anesthetic Plan ASA status: 3 Anesthesia: General Medications/Allergies Home Medications Medication Instructions Recorded Confirmed Last Taken Type aspirin 81 mg tablet,delayed 81 mg PO DAILY 09/13/19 02/17/23 02/17/23 History release (Adult Aspirin Regimen) lisinopril 20 mg tablet 20 mg PO BID 09/13/19 02/17/23 02/19/23 History omeprazole 20 mg capsule,delayed 20 mg PO DAILY 09/13/19 02/17/23 02/19/23 History release ropinirole 1 mg tablet 0.5 mg PO BID 09/13/19 02/20/23 02/20/23 05:30 History potassium gluconate 500 mg (83 mg) 500 mg PO DAILY 03/19/20 02/17/23 02/20/23 05:30 History tablet duloxetine 30 mg capsule,delayed 30 mg PO DAILY 04/23/21 02/17/23 02/20/23 05:30 History release meloxicam 15 mg tablet 15 mg PO DAILY 30 days #30 tabs 05/20/21 02/17/23 02/14/23 Rx amlodipine 5 mg tablet 5 mg PO DAILY 01/14/22 02/17/23 02/20/23 05:30 History oxycodone-acetaminophen 5 mg-325 1 tab PO Q8H PRN Pain 02/14/23 02/17/23 05:30 History mg tablet Allergies Allergy/AdvReac Type Severity Reaction Status Date / Time adhesive tape Allergy ALGY-Redness Verified 02/17/23 11:08 of Skin fentanyl AdvReac ITCHING Verified 02/17/23 11:08 Current Medications Generic Name Dose Route Start Last Admin Trade Name Freq PRN Reason Stop Dose Admin Sodium Chloride 1,000 mls @ 30 mls/hr 02/20/23 06:45 02/20/23 07:15 Sodium Chloride 0.9% IV 02/21/23 06:44 30 mls/hr .Q24H IRINA Administration PFSH Anesthesia Medical History Chronic lumbosacral pain Chronic SI joint pain Encounter for long-term (current) use of NSAIDs Encounter for long-term (current) use of NSAIDs Encounter for long-term use of opiate analgesic Left renal mass Opioid contract exists Smoker Tobacco abuse counseling Tonsillectomy planned Surgical History H/O neck surgery H/O tubal ligation History of appendectomy History of carpal tunnel surgery of right wrist Family History Mother , at age 75 Hypertension Blood clots in brain Father Lung disease Seizures Heart disease Other Bleeding disorder CAD (coronary artery disease) Cancer Social History Smoking and tobacco status: current every day smoker cigarettes Packs smoked per day: 1 Alcohol intake: never Substance/Drug Use: never Lives independently: Yes Marital status: Current occupational status: disabled Data Anesthesia Cardiac Studies: No Data to Display
[2023-02-20] MEDS: ceFAZolin 2,000 MG in sodium chloride 0.9% (plus) 50 ML 100 MG IV (08:47)
--- NOTE | 2023-02-20 08:50 | SC_ITS ---
WS: [id number] Exam: C-arm FL for Kyphoplasty Date/Time of Exam: 02/20/2023 8:50 AM Reason For Exam: kyphoplasty AP and lateral intraoperative C-arm images of the lower lumbar spine are obtained. The images depict kyphoplasty of a compression fracture of the L4 vertebra.
[2023-02-20] MEDS: lidocaine-epi 1% 20 mL INJ INJECTION (09:15)
[2023-02-20] MEDS: iohexol 300 mg/mL 50 mL Btl 20 ML XX (09:15)
[2023-02-20] MEDS: HYDROmorphone 1 mg/mL INJ 1 mL 0.25 MG IVP (09:49)
--- NOTE | 2023-02-20 09:58 | PM.OP ---
Operative Report Date of procedure: February 20, 2023 Pre-op diagnosis: L4 wedge Osteoporotic traumatic compression fracture Post-op diagnosis: same Procedure done: 1. T12 Kyphoplasty Surgeon: Edis Lemons Personal Lines Advisor: none Estimated blood loss (mL): 5 Procedure: T12 Kyphoplasty Patient was brought to the operative suite after undergoing anesthesia placed in the prone position. All areas of pressure well-padded. Skin incision was made over the right and left pedicle. The awl's were inserted. The drill was then placed into the vertebral body. Then the balloons were placed and inflated then deflated. Cement was injected on both the right and left side at the L4 level. AP and lateral fluoroscopy ensured the cement was in good position. Once the body had good fill these cement was stopped. The tube removed AP and lateral fluoroscopy ensured that the vertebral body had good flow and was in good position. Wounds irrigated and closed nylon suture.
[2023-02-20] MEDS: oxyCODONE 5 mg IR Tab/Cap PO (10:25)
--- NOTE | 2023-02-20 14:26 | ANE.PACU2 ---
Inpatient post-anesthesia follow up: Airway intact: Yes Vital signs: Temperature 97 F Pulse Rate 82 Respiratory Rate 18 Blood Pressure 105/79 Pulse Oximetry 95 Oxygen Delivery Me thod Room Air Oxygen Flow Rate 6 Fraction of Inspir ed Oxygen Hydration adequate: Yes Nausea and vomiting: No Pain level: 2 Mental status: Baseline
== END 2023-02-20 11:03 | disposition home or self-care (01) ==
PROVIDERS: PCP Family Medicine; Visit Provider Orthopaedic Surgery
PROC: (CPT 22514; principal; 2023-02-20 08:15)
DX: S32.040A Wedge compression fracture of fourth lumbar vertebra, initial encounter for closed fracture (principal); X58.XXXA Exposure to other specified factors, initial encounter; K21.9 Gastro-esophageal reflux disease without esophagitis; Z79.82 Long term (current) use of aspirin; Z79.891 Long term (current) use of opiate analgesic; F17.210 Nicotine dependence, cigarettes, uncomplicated
CPT/HCPCS: 22514; 76000; J0330; J0690; J1100; J1170; J2371; J2405; J2704; J2710; J3010; J3490; J7030; Q9967

== ENCOUNTER → 2023-03-14 08:13 | Outpatient (BNVA) | payer MEDICARE, MEDICAID, SELFPAY | PROVIDERS: PCP Family Medicine; Visit Provider Orthopaedic Surgery | DX: Z47.89 Encounter for other orthopedic aftercare (principal) | CPT/HCPCS: 99213 ==

== ENCOUNTER → 2023-04-05 09:44 | Outpatient (BNVA) | payer MEDICARE, MEDICAID, SELFPAY | PROVIDERS: PCP Family Medicine; Visit Provider Anesthesiology Pain Medicine | DX: M25.559 Pain in unspecified hip (principal) | CPT/HCPCS: 99214 ==

== ENCOUNTER → 2023-05-03 14:07 | Outpatient (BNVA) | payer MEDICARE, MEDICAID, SELFPAY | PROVIDERS: PCP Family Medicine; Visit Provider Anesthesiology Pain Medicine | DX: M16.0 Bilateral primary osteoarthritis of hip (principal) | CPT/HCPCS: 20610; 77002; J1030; J3490 ==

== ENCOUNTER → 2023-05-23 11:10 | Outpatient (BNVA) | payer MEDICARE, MEDICAID, SELFPAY | PROVIDERS: PCP Family Medicine; Visit Provider Anesthesiology Pain Medicine | DX: M25.551 Pain in right hip (principal); M25.552 Pain in left hip; M48.061 Spinal stenosis, lumbar region without neurogenic claudication; M47.816 Spondylosis without myelopathy or radiculopathy, lumbar region; M47.817 Spondylosis without myelopathy or radiculopathy, lumbosacral region | CPT/HCPCS: 99214 ==

== ENCOUNTER → 2023-06-21 13:46 | Outpatient (BNVA) | payer MEDICARE, MEDICAID, SELFPAY | PROVIDERS: PCP Family Medicine; Visit Provider Anesthesiology Pain Medicine | DX: M47.816 Spondylosis without myelopathy or radiculopathy, lumbar region (principal); G89.29 Other chronic pain | CPT/HCPCS: 64493; 64494; 64495; J3490 ==

== ENCOUNTER → 2023-07-04 13:41 | Outpatient (BNVA) | payer MEDICARE, MEDICAID, SELFPAY | PROVIDERS: PCP Family Medicine; Visit Provider Anesthesiology Pain Medicine | DX: M47.816 Spondylosis without myelopathy or radiculopathy, lumbar region (principal); G89.29 Other chronic pain | CPT/HCPCS: 64493; 64494; 64495; J3490 ==

== ENCOUNTER → 2023-07-18 08:31 | Outpatient (BNVA) | payer MEDICARE, MEDICAID, SELFPAY | PROVIDERS: PCP Family Medicine; Visit Provider Anesthesiology Pain Medicine | DX: M25.559 Pain in unspecified hip (principal); G89.29 Other chronic pain; M47.816 Spondylosis without myelopathy or radiculopathy, lumbar region | CPT/HCPCS: 99214 ==

== ENCOUNTER → 2023-08-22 12:37 | Outpatient (BNVA) | payer MEDICARE, MEDICAID, SELFPAY | PROVIDERS: PCP Family Medicine; Visit Provider Anesthesiology Pain Medicine | DX: M47.816 Spondylosis without myelopathy or radiculopathy, lumbar region (principal); G89.29 Other chronic pain | CPT/HCPCS: 64635; 64636; J1030 ==

== ENCOUNTER → 2023-09-05 12:23 | Outpatient (BNVA) | payer MEDICARE, MEDICAID, SELFPAY | PROVIDERS: PCP Family Medicine; Visit Provider Anesthesiology Pain Medicine | DX: G89.29 Other chronic pain (principal); M47.816 Spondylosis without myelopathy or radiculopathy, lumbar region | CPT/HCPCS: 64635; 64636; J1030 ==

== ENCOUNTER → 2023-09-21 10:19 | Outpatient (BNVA) | payer MEDICARE, MEDICAID, SELFPAY | PROVIDERS: PCP Family Medicine; Visit Provider Anesthesiology Pain Medicine | DX: G89.29 Other chronic pain (principal); M47.816 Spondylosis without myelopathy or radiculopathy, lumbar region; M79.605 Pain in left leg; M48.061 Spinal stenosis, lumbar region without neurogenic claudication; M47.817 Spondylosis without myelopathy or radiculopathy, lumbosacral region | CPT/HCPCS: 99214 ==

== ENCOUNTER → 2023-10-03 14:15 | Outpatient (BNVA) | payer MEDICARE, MEDICAID, SELFPAY | PROVIDERS: PCP Family Medicine; Visit Provider Anesthesiology Pain Medicine | DX: M54.16 Radiculopathy, lumbar region (principal); G89.29 Other chronic pain | CPT/HCPCS: 64483; J1100; J3490 ==

== ENCOUNTER → 2023-10-12 13:46 | Outpatient (BNVA) | payer MEDICARE, MEDICAID, SELFPAY | PROVIDERS: PCP Family Medicine; Referring Provider Anesthesiology Pain Medicine; Visit Provider Orthopaedic Surgery | DX: G89.29 Other chronic pain (principal); M48.062 Spinal stenosis, lumbar region with neurogenic claudication | CPT/HCPCS: 72100; 99214 ==

== ENCOUNTER 2023-11-07 11:41 | Outpatient (CLI) | payer MEDICARE, MEDICAID, SELFPAY ==
--- NOTE | 2023-11-07 11:45 | MR_ITS ---
WS: [id number] MRI LUMBAR SPINE NONCONTRAST HISTORY: Low back pain, pain and numbness, LEFT greater than RIGHT. COMPARISON: 01/25/2023 TECHNIQUE: Sagittal and axial multisequence imaging is submitted. Prior cervical fusion. Central moderate size disc protrusions at T5-6 and T6-7 contact the ventral th ecal sac. These have slightly progressed since the prior study from 01/25/2023. Chronic L1 compression fracture of 20%. No marrow edema. Previously described L1 compression graft fr acture now with kyphoplasty. Retrolisthesis of the posterior superior endplate by 3.5 mm. There is a small amount of residual marrow edema in the RIGHT L4 pedicle. Overall the marrow edema has decreased since 01/25/2023. Less marrow edema within L4 and L5. Disc spaces are mildly desiccated throughout. Conus terminates normally at L1-2 disc level. L1-L2: Facet arthritis with mild bilateral subarticular recess encroachment and facet arthritis. No h igh-grade stenosis. L2-L3: Mild diffuse annular disc bulging with encroachment upon the subarticular recesses and the hero tral thecal sac. Mild central and bilateral subarticular recess encroachment. L3-L4: Diffuse annular disc bulging with marked ligamentum flavum and facet arthritis. Retrolisthesis of L4 contributing to the central stenosis. Severe central, bilateral subarticular recess and RIGHT foraminal stenosis. Moderate LEFT foraminal stenosis. There is disc contacting the L3 and L4 nerve ro ots bilaterally. Very similar to the prior study. L4-L5: Mild diffuse annular disc bulging with marked ligamentum flavum and facet arthritis. There roldan s appear to be slight progression of the central stenosis. Moderate to severe central, bilateral suba rticular recess and mild foraminal stenosis. L5-S1: Mild diffuse annular disc bulging with ligamentum flavum and facet arthritis. Disc encroaches into the subarticular recesses contacting the S1 nerve roots. Moderate central with bilateral subarti cular recess and LEFT foraminal stenosis. Mild RIGHT foraminal stenosis. Disc does contact the S1 ner ve roots bilaterally. IMPRESSION: 1. No new lumbar spine fracture since 01/25/2023. 2. Stable L1 anterior compression fracture by 20%. 3. L4 compression fracture is stable now with kyphoplasty. 4. L4-5: Moderate to severe central with bilateral subarticular recess and mild foraminal stenosis. Stenosis has slightly progressed since 01/25/2023. 5. L5-S1: Moderate central with bilateral subarticular recess and LEFT foraminal stenosis. Disc cont acts the S1 nerve roots bilaterally. 6. L3-4: Severe central, bilateral subarticular recess and RIGHT foraminal stenosis. Moderate LEFT f oraminal stenosis. 7. L2-3: Mild central and bilateral subarticular recess encroachment.
== END 2023-11-07 11:42 | disposition home or self-care (01) ==
LOC: RAD 11:41
PROVIDERS: PCP Family Medicine; Visit Provider Orthopaedic Surgery
DX: M54.50 Low back pain, unspecified (principal); G89.29 Other chronic pain; R20.0 Anesthesia of skin; M48.061 Spinal stenosis, lumbar region without neurogenic claudication; M48.56XD Collapsed vertebra, not elsewhere classified, lumbar region, subsequent encounter for fracture with routine healing
CPT/HCPCS: 72148

== ENCOUNTER → 2023-11-14 08:29 | Outpatient (BNVA) | payer MEDICARE, MEDICAID, SELFPAY | PROVIDERS: PCP Family Medicine; Visit Provider Orthopaedic Surgery | DX: M48.062 Spinal stenosis, lumbar region with neurogenic claudication (principal) | CPT/HCPCS: 36415; 80053; 81001; 85025; 99214 ==

== ENCOUNTER → 2023-11-21 15:11 | Outpatient (BNVA) | payer MEDICARE, MEDICAID, SELFPAY | PROVIDERS: PCP Family Medicine; Visit Provider Family Medicine | DX: Z01.818 Encounter for other preprocedural examination (principal) | CPT/HCPCS: 81003; 87077; 87086; 87184 ==

== ENCOUNTER 2023-12-15 05:43 | Day surgery (SDC) | payer MEDICARE, MEDICAID, SELFPAY ==
[2023-12-15] VITALS (13 sets, daily range): BP systolic 131–161; BP diastolic 72–97; PULSE 63–77; RESP 14–18; TEMP 36.1–36.7; O2SAT 92–99; BMI 34.3
--- NOTE | 2023-12-15 06:40 | W.PM.OPSUD ---
Surgery/Procedure H&P Update DATE OF PROCEDURE: December 15, 2023 DATE H&P PERFORMED: 11/21/23 H&P UPDATE INFORMATION: I have reviewed H&P completed within last 30 days, I have examined patient prior to procedure and No changes to prior documentation PREOP DIAGNOSIS: Lumbar stenosis with neurogenic claudication PLANNED PROCEDURE: Operation Date: 12/15/23 07:00 Proposed Procedures p Lumbar Spine Decompression Lumbar Decompression(Not Applicable) - Edis Lemons DO
--- NOTE | 2023-12-15 06:45 | ANES.PREANE2 ---
Pre-Anesthetic Assessment Height/Weight: Height 1.63 m Weight 90.718 kg O2 Del Method Room Air 12/15/23 06:14 Preop Diagnosis: Lumbar stenosis with neurogenic claudication Operation Date: 12/15/23 07:00 Proposed Procedures p Lumbar Spine Decompression Lumbar Decompression(Not Applicable) - Edis Lemons DO Familial anesthetic complications: None Was Beta Marc taken within 24 hours: N/A Was Clonidine taken within 24 hours: N/A Last intake: Intake Last Liquid Date 12/14/23 Last Liquid Time 18:30 Last Solid Date 12/14/23 Last Solid Time 18:30 Social Tobacco and No alcohol Exam alert, oriented x 3, clear to auscultation bilaterally and regular rate & rhythm Airway Mallampati: Class II Dentition: false CV/HEM Hypertension GI Gastroesophageal Reflux Disease Anesthetic Plan ASA status: 2 Anesthesia: General Risk of > 500 ml blood loss (7ml/kg in children): No Medications/Allergies Home Medications Medication Instructions Recorded Confirmed Last Taken Type aspirin 81 mg tablet,delayed 81 mg PO DAILY 09/13/19 11/23/23 11/20/23 History release (Adult Aspirin Regimen) lisinopril 20 mg tablet 20 mg PO BID 09/13/19 11/23/23 12/14/23 History omeprazole 20 mg capsule,delayed 20 mg PO DAILY 09/13/19 11/23/23 12/14/23 History release ropinirole 1 mg tablet 0.5 mg PO BID 09/13/19 11/23/23 12/14/23 History potassium gluconate 500 mg (83 mg) 500 mg PO DAILY 03/19/20 11/23/23 12/14/23 History tablet duloxetine 30 mg capsule,delayed 30 mg PO DAILY 04/23/21 11/23/23 12/14/23 History release meloxicam 15 mg tablet 15 mg PO DAILY 30 days #30 tabs 05/20/21 11/23/23 12/06/23 Rx amlodipine 5 mg tablet 5 mg PO DAILY 01/14/22 11/23/23 12/14/23 History oxycodone-acetaminophen 5 mg-325 1 tab PO Q8H PRN Pain 02/14/23 12/15/23 12/14/23 History mg tablet gabapentin 300 mg capsule 300 mg PO TID pain #90 caps 10/23/23 11/23/23 12/14/23 Rx phentermine 15 mg capsule 15 mg PO DAILY 11/21/23 11/23/23 11/20/23 History Allergies Allergy/AdvReac Type Severity Reaction Status Date / Time adhesive tape Allergy ALGY-Redness Verified 11/21/23 08:04 of Skin fentanyl AdvReac ITCHING Verified 11/21/23 08:04 Current Medications Generic Name Dose Route Start Last Admin Trade Name Freq PRN Reason Stop Dose Admin Sodium Chloride 1,000 mls @ 30 mls/hr 12/15/23 07:00 12/15/23 07:00 Sodium Chloride 0.9% IV 12/16/23 06:59 30 mls/hr .Q24H IRINA Administration PFSH Anesthesia Medical History Left renal mass Encounter for long-term (current) use of NSAIDs Encounter for long-term (current) use of NSAIDs Chronic SI joint pain Tonsillectomy planned Opioid contract exists Encounter for long-term use of opiate analgesic Tobacco abuse counseling Smoker Chronic lumbosacral pain Surgical History H/O neck surgery History of appendectomy H/O tubal ligation History of carpal tunnel surgery of right wrist Family History Mother , at age 75 Hypertension Blood clots in brain Father Lung disease Seizures Heart disease Other Bleeding disorder CAD (coronary artery disease) Cancer Social History Smoking and tobacco/nicotine status: current every day tobacco/nicotine user cigarettes Packs smoked per day: 1 Alcohol intake: never Substance/Drug Use: never Lives independently: Yes Marital status: Current occupational status: disabled Data Anesthesia Cardiac Studies: No Data to Display
[2023-12-15] MEDS: ceFAZolin 2,000 MG in sodium chloride 0.9% (plus) 50 ML 100 MG IV (07:00)
[2023-12-15] MEDS: sodium chloride 0.9% 1,000 ML 30 ML IV (07:00)
[2023-12-15] MEDS: lidocaine-epi 1% 20 mL INJ INJECTION (07:45)
[2023-12-15] MEDS: HYDROmorphone 1 mg/mL INJ 1 mL 0.5 MG IVP (08:44)
--- NOTE | 2023-12-15 08:54 | PM.OP ---
Operative Report Date of procedure: December 15, 2023 Pre-op diagnosis: Lumbar stenosis with neurogenic claudication Post-op diagnosis: same Procedure done: 1. L3-4 laminectomy with partial facetectomy 2. L4-5 laminectomy with partial facetectomy Surgeon: Edis Lemons DO Estimated blood loss (mL): 10 Procedure: 1. L3-4 laminectomy with partial facetectomy 2. L4-5 laminectomy with partial facetectomy Patient is brought to the operative suite. After undergoing anesthesia they are placed in the prone position. All areas of impingement are well padded. Patient is then prepped and draped in the normal sterile fashion. A skin incision is made over the L3-4 level. This is confirmed under c-arm guidance. A series of dilators are passed and the tubular retractor is docked on the L3 lamina. A bovie is used to clear the soft tissue off the lamina and the L 3/4 facet joint. A high speed joan is then used to perform the laminectomy and take down the medial aspect of the L 3/4 facet joint. A kerrison rongeure was then used to take down the remaining lamina and smooth the edge of the laminectomy up to the point where the ligamentum flavum attaches. Attention was then brought to the medial aspect of the facet joint. The remaining medial aspect of the superior and inferior aspect of the facet joint were taken down with the kerrison from the pedicle of L3 to L 4. The facet joint had significant hypertrophy. Attention was then brought to the Ligamentum Flavum. The ligament was taken down from the lamina of L3 to L4 and out medially to the remaining facet joint. The ligament was thick. The dura was then exposed. The dura was in good repair. The L3 nerve was then traced with a curette out the L3/4 foramen and found to be adequately decompressed. The L4 nerve was traced with a curette around the L4 pedicle. The lateral recess was opened with a kerrison helping to further decompress the L4 nerve. Wound is then irrigated copiously with saline and surgiflo is used to stop any bleeding. The tubular retractor is removed and the A skin incision is made over the L4/5 level. This is confirmed under c-arm guidance. A series of dilators are passed and the tubular retractor is docked on the L4 lamina. A bovie is used to clear the soft tissue off the lamina and the L 4/5 facet joint. A high speed joan is then used to perform the laminectomy and take down the medial aspect of the L 4/5 facet joint. A kerrison rongeure was then used to take down the remaining lamina and smooth the edge of the laminectomy up to the point where the ligamentum flavum attaches. Attention was then brought to the medial aspect of the facet joint. The remaining medial aspect of the superior and inferior aspect of the facet joint were taken down with the kerrison from the pedicle of L4 to L 5. The facet joint had significant hypertrophy. Attention was then brought to the Ligamentum Flavum. The ligament was taken down from the lamina of L4 to L5 and out medially to the remaining facet joint. The ligament was thick. The dura was then exposed. The dura was in good repair. The L4 nerve was then traced with a curette out the L4/5 foramen and found to be adequately decompressed. The L5 nerve was traced with a curette around the L5 pedicle. The lateral recess was opened with a kerrison helping to further decompress the L5 nerve. Wound is then irrigated copiously with saline and surgiflo is used to stop any bleeding. The tubular retractor is removed and the wound is closed with vicryl and monocryl suture. Glue is then used to protect the wound. A sterile dressing is then placed. Patient was then placed in the supine position and transferred to the PACU in stable condition.
[2023-12-15] MEDS: oxyCODONE 5 mg IR Tab/Cap PO (09:42)
--- NOTE | 2023-12-15 10:40 | ANE.PACU2 ---
Inpatient post-anesthesia follow up: Airway intact: Yes Vital signs: Temperature 97.4 F Pulse Rate 64 Respiratory Rate 16 Blood Pressure 138/94 Pulse Oximetry 95 Oxygen Delivery Me thod Room Air Oxygen Flow Rate 6 Fraction of Inspir ed Oxygen Hydration adequate: Yes Nausea and vomiting: No Pain level: 1 Mental status: Baseline
--- NOTE | 2023-12-15 12:38 | XR_ITS ---
WS: [id number] Lumbar spine, C-arm fluoroscopy views, 12/15/2023 Clinical Data: or pic, decompression Comparison: Lumbar spine, 10/12/2023. Findings: Dr. Lemons performed a lumbar decompression. XR/XR lumbar spine 1V [id number] Impression: Lumbar decompression.
== END 2023-12-15 10:44 | disposition home or self-care (01) ==
PROVIDERS: PCP Family Medicine; Visit Provider Orthopaedic Surgery
PROC: (CPT 63005; principal; 2023-12-15 07:00)
DX: M48.062 Spinal stenosis, lumbar region with neurogenic claudication (principal)
CPT/HCPCS: 63047; 72020; 76000; J0330; J0690; J1100; J1170; J2250; J2405; J2704; J2710; J3490; J7030

== ENCOUNTER → 2024-01-02 12:43 | Outpatient (BNVA) | payer MEDICARE, MEDICAID, SELFPAY | PROVIDERS: PCP Family Medicine; Visit Provider Orthopaedic Surgery | DX: Z98.890 Other specified postprocedural states (principal) | CPT/HCPCS: 99024 ==

== ENCOUNTER → 2024-01-30 08:04 | Outpatient (BNVA) | payer MEDICARE, MEDICAID, SELFPAY | PROVIDERS: PCP Family Medicine; Visit Provider Orthopaedic Surgery | DX: Z98.890 Other specified postprocedural states (principal) | CPT/HCPCS: 99024 ==

== ENCOUNTER → 2024-03-14 10:46 | Outpatient (BNVA) | payer MEDICARE, MEDICAID, SELFPAY | PROVIDERS: PCP Family Medicine; Visit Provider Orthopaedic Surgery | DX: Z98.890 Other specified postprocedural states (principal) | CPT/HCPCS: 99024 ==

== ENCOUNTER → 2024-04-25 10:51 | Outpatient (BNVA) | payer MEDICARE, MEDICAID, SELFPAY | PROVIDERS: PCP Family Medicine; Visit Provider Orthopaedic Surgery | DX: Z98.890 Other specified postprocedural states (principal) | CPT/HCPCS: 99213 ==

== ENCOUNTER 2024-05-20 12:32 | Outpatient (CLI) | payer MEDICARE, MEDICAID, SELFPAY ==
--- NOTE | 2024-05-20 13:00 | MR_ITS ---
WS: [id number] MRI LUMBAR SPINE NONCONTRAST TECHNIQUE: Sagittal T1, T2 and STIR imaging. Axial T1 and T2 imaging. CLINICAL INFORMATION: back pain COMPARISON: MRI 11/07/2023 FINDINGS: Mild lumbar curve. No acute compression. Chronic anterior wedging at L1 is unchanged. Prior chronic c ompression fracture L4 with kyphoplasty changes. L1-L2: Slight retrolisthesis. Mild disc bulging with slight effacement of the ventral thecal sac. Mil d facet arthropathy. Foramen are patent. L2-L3: Mild annular bulging. Slight narrowing of the subarticular recess bilaterally. Mild facet arth ropathy. Spinal canal and foramen are patent. L3-L4: Mild disc bulging with interval LEFT hemilaminectomy. Moderate persistent narrowing of the the dafne sac slightly improved compared to previous. Moderate facet arthropathy ligamentum flavum hypertro phy. Moderate RIGHT foraminal narrowing impinges the exiting RIGHT L3 nerve root. Mild LEFT foraminal narrowing. L4-L5: Mild disc bulging with interval LEFT hemilaminectomy. Moderate residual central canal stenosis . Slight impingement on the subarticular recess bilaterally. Foramen are patent. L5-S1: Mild disc bulging with slight effacement of the ventral thecal sac. Slight impingement trent ing S1 nerve roots bilaterally. Moderate facet arthropathy. Moderate LEFT and mild RIGHT foraminal na rrowing appears unchanged. Small bilateral renal cysts. Small LEFT renal cortical lesion with decreased signal is indeterminant measuring 9 mm. This can be followed up with contrast-enhanced CT abdomen pelvis or ultrasound. Visualized pelvic bony structures: Normal. Paravertebral soft tissues: Normal. Few shallow disc protrusions in the thoracic spine seen on the paving and surfacing labourer imaging worse at T5-T6 and T6-T7 . MR/MR lumbar spine wo con* [id number] IMPRESSION: 1. Mild lumbar curve. No acute compression. 2. Chronic anterior wedging L1. Chronic compression L4 vertebral body with kyp hoplasty changes. 3. Interval hemilaminectomies L3-L4 and L4-L5 with moderate residual narrowing of the thecal sac described above. 4. Moderate RIGHT L3-4 foraminal narrowing with slight impingement on the exit ing RIGHT L3 nerve root. 5. Moderate LEFT L5-S1 bony foraminal narrowing appears stable. 6. Moderate facet arthropathy L3-L5. 7. Indeterminate small LEFT renal cortical lesion. Recommend follow-up with co ntrast-enhanced CT abdomen pelvis or ultrasound.
== END 2024-05-20 12:33 | disposition home or self-care (01) ==
PROVIDERS: PCP Family Medicine; Visit Provider Orthopaedic Surgery
DX: S32.010S Wedge compression fracture of first lumbar vertebra, sequela (principal); M47.896 Other spondylosis, lumbar region; M99.63 Osseous and subluxation stenosis of intervertebral foramina of lumbar region; M99.64 Osseous and subluxation stenosis of intervertebral foramina of sacral region; Q61.02 Congenital multiple renal cysts; Z98.890 Other specified postprocedural states; X58.XXXA Exposure to other specified factors, initial encounter
CPT/HCPCS: 72148

== ENCOUNTER 2024-05-30 10:43 | Outpatient (CLI) | payer MEDICARE, MEDICAID, SELFPAY ==
--- NOTE | 2024-05-30 10:40 | MM_ITS ---
WS: [id number] VIEWS: MLO and CC views both breasts. 3D digital tomosynthesis is also included in this exam. Comparison made with prior exam of 08/23/2004, 01/11/2016, 12/22/2021, 12/27/2022. Findings: There are scattered areas of fibroglandular density. No sign of suspicious mass, tumor calcification or architectural distortion. Stable appearing nodular densities in both breasts. MM/MM scr BI tomosynthesis [id number] Impression: BI-RADS: 2 - Benign FOLLOW-UP: 1 Year Follow-up This mammogram was also analyzed by the Computer Aided Detection System R2 Imag e Risk Advisor.
== END 2024-05-30 10:44 | disposition home or self-care (01) ==
PROVIDERS: PCP Family Medicine; Visit Provider Family Medicine
DX: Z12.31 Encounter for screening mammogram for malignant neoplasm of breast (principal); R92.323 Mammographic fibroglandular density, bilateral breasts
CPT/HCPCS: 36415; 77063; 77067; 80053; 81001; 85025; 99214

== ENCOUNTER → 2024-06-04 09:43 | Outpatient (BNVA) | payer MEDICARE, MEDICAID, SELFPAY | PROVIDERS: PCP Family Medicine; Visit Provider Family Medicine | DX: Z01.818 Encounter for other preprocedural examination (principal) | CPT/HCPCS: 81003 ==

== ENCOUNTER 2024-06-25 21:11 | Emergency (ER) | payer MEDICARE, MEDICAID, SELFPAY ==
[2024-06-25 21:13] VITALS: BP 164/92; PULSE 86; RESP 18; TEMP 36.7; O2SAT 95; BMI 34.3
[2024-06-25 21:22] VITALS: BP 164/92; PULSE 82; O2SAT 95
--- NOTE | 2024-06-25 21:34 | XRR_ITS ---
PROCEDURE INFORMATION: Exam: XR Left Hip Exam date and time: 06/25/2024 9:40 PM Age: 59 years old Clinical indication: Hip pain; Left hip; Additional info: Hip pain no trauma TECHNIQUE: Imaging protocol: Radiologic exam of the left hip. Views: 2 or 3 views hip with pelvis when performed. COMPARISON: CT abdomen pelvis wo/w [id number] 07/18/2022 12:45 PM FINDINGS: Bones/joints: Unremarkable. No acute fracture. Soft tissues: Unremarkable. XR/XR hip LT 2-3V wo/w pel* [id number] IMPRESSION: No acute findings.
--- NOTE | 2024-06-25 21:39 | ED_ITS ---
HPI - Neuro Symptoms/Deficit 2 General: Chief Complaint: Neuro Symptoms/Deficit Stated Complaint: LEFT NUMBNESS Time Seen by Provider: 06/25/24 21:16 History of Present Illness: Patient presents to the ER with a 2-day history of intermittent left leg numbness she says it gets numb and feels like she is walking on something squishy is worse when she gets up and walks and then comes down when she sits down. Patient does have a history of lumbar decompression and is needing another surgery. He said that pain and sensation from it was a little different. Patient also says she needs a left hip replacement and has chronic left hip pain all the time and this pain is chronic and unchanged in nature and this is different than the intermittent numbness and tingling. Patient knows no other triggers other than walking no other things to make it stop other than stop walking. Patient says only last 1 to 2 minutes at a time. Patient sees Dr. Muñoz concerning her spine. Patient has no other complaints at this time. Patient's neuroexam is negative. With no focal deficits. Related Data Home Medications Medication Instructions Recorded Confirmed aspirin 81 mg tablet,delayed 81 mg PO DAILY 09/13/19 06/04/24 release (Adult Aspirin Regimen) lisinopril 20 mg tablet 20 mg PO BID 09/13/19 06/04/24 omeprazole 20 mg capsule,delayed 20 mg PO DAILY 09/13/19 06/04/24 release ropinirole 1 mg tablet 0.5 mg PO BID 09/13/19 06/04/24 potassium gluconate 500 mg (83 mg) 500 mg PO DAILY 03/19/20 06/04/24 tablet duloxetine 30 mg capsule,delayed 30 mg PO DAILY 04/23/21 06/04/24 release amlodipine 5 mg tablet 5 mg PO DAILY 01/14/22 06/04/24 oxycodone-acetaminophen 5 mg-325 1 tab PO Q8H PRN Pain 02/14/23 06/04/24 mg tablet Previous Rx's Medication Instructions Recorded meloxicam 15 mg tablet 15 mg PO DAILY 30 days #30 tabs 05/20/21 gabapentin 300 mg capsule 300 mg PO TID pain #90 caps 10/23/23 Allergies Allergy/AdvReac Type Severity Reaction Status Date / Time adhesive tape Allergy ALGY-Redness Verified 06/25/24 21:22 of Skin fentanyl AdvReac ITCHING Verified 06/25/24 21:22 Review of Systems 2 General: Reports: 10 or more systems reviewed and unremarkable except in HPI and below PFSH ED 2 PFSH: Medical History Left renal mass Encounter for long-term (current) use of NSAIDs Encounter for long-term (current) use of NSAIDs Chronic SI joint pain Tonsillectomy planned Opioid contract exists Encounter for long-term use of opiate analgesic Tobacco abuse counseling Smoker Chronic lumbosacral pain Surgical History H/O neck surgery History of appendectomy H/O tubal ligation History of carpal tunnel surgery of right wrist Family History Mother , at age 75 Hypertension Blood clots in brain Father Lung disease Seizures Heart disease Other Bleeding disorder CAD (coronary artery disease) Cancer Social History Smoking and tobacco/nicotine status: current every day tobacco/nicotine user cigarettes Packs smoked per day: 1 Alcohol intake: never Substance/Drug Use: never Lives independently: Yes Marital status: Current occupational status: disabled NIH stroke score 2 NIHSS: Level Of Consciousness - 1a: 0 Level Of Consciousness Questions - 1b: Both Correct Level Of Consciousness Commands - 1c: Both Correct Best Gaze - 2: Normal Visual Xie - 3: No Visual Loss Facial Palsy - 4: N ormal Motor Arm Right - 5: No Drift Motor Arm Left - 5: No Drift Motor Leg Right - 6: No Drift Motor Leg Left - 6: No Drift Limb Ataxia - 7: A bsent Sensory - 8: Normal Best Language - 9: No Aphasia Dysarthia - 10: Normal Extinction And Inattention - 11: 0 Score: Total Score: 0 Physical Exam 2 Const: COMMON NORMALS: no acute distress, average body habitus, patient oriented x3, no limitations, healthy appearing, alert and well nourished HENMT: COMMON NORMALS: normocephalic, atraumatic, hearing grossly normal bilaterally, external ears normal, Normal external nose present and moist oral mucous membranes HEAD & SCALP: normocephalic and atraumatic NOSE: Normal external nose present EXTERNAL EAR: Yes external ears normal Neck/C-Spine: COMMON NORMALS: full ROM, no lymphadenopathy, supple, no meningeal signs and no JVD Chest: COMMONS NORMALS: normal inspection of the chest and normal palpation of entire chest wall Resp: COMMON NORMALS: normal respiratory effort, No retractions, No use of accessory muscles and clear to auscultation bilaterally AUSCULTATION: clear to auscultation bilaterally Cardio: COMMON NORMALS: no JVD, regular rate, regular rhythm, S1 normal heart sound present, S2 normal heart sound present, No gallops present (Cardio), No clicks present (Cardio), No murmurs present (Cardio) and No rub (Cardio) R ATE: regular rate RHYTHM: regular rhythm HEART SOUNDS: S1 normal heart sound present and S2 normal heart sound present GI: COMMON NORMALS: Normal to inspection, nondistended, normoactive bowel sounds present, Soft to palpation, non-tender, No hepatosplenomegaly present and no masses PALPATION: Yes Soft to palpation and Yes No hepatosplenomegaly present Neuro: COMMON NORMALS: patient oriented x3 SENSORIUM/ORIENTATION: Yes alert MENINGEAL SIGNS: Yes no meningeal signs Course 2 Vital Signs: Vital signs: Vital Signs Temperature 98.0 F 06/25/24 21:13 Pulse Rate 86 06/25/24 21:13 Respiratory Rate 18 06/25/24 21:13 Blood Pressure 164/92 06/25/24 21:13 Pulse Oximetry 95 06/25/24 21:13 Oxygen Delivery Me thod Room Air 06/25/24 21:13 MDM - Neuro Symptoms/Deficit Medical Decision Making Lab work included CBC CMP ESR CRP urinalysis hip x-ray all benign with no acute findings other than urinalysis that showed 1+ leukocyte Estrace and a couple more white cells and normal. Patient is not having any urinary tract symptomatology right now therefore we will not treat. All of these was discussed with the patient. Patient be discharged home. Medical Records I reviewed the patient's medical records. Lab Data I reviewed the patient's lab results. 06/25/24 21:00 06/25/24 21:00 Radiology Impressions Hip/Pelvis X-Ray 06/25/24 21:34 IMPRESSION: No acute findings. Laboratory Results WBC 10.16 10^3/uL (3.29-11.43) 06/25/24 21:00 RBC 4.27 10^6/uL (3.85-5.65) 06/25/24 21:00 Hgb 13.60 g/dL (11.27-16.99) 06/25/24 21:00 Hct 41.2 % (36-47) 06/25/24 21:00 MCV 96.5 fl (85-98) 06/25/24 21:00 MCH 31.9 pg (27-33) 06/25/24 21:00 MCHC 33.0 g/dL (30-55) 06/25/24 21:00 RDW 13.2 % (12.1-15.1) 06/25/24 21:00 Plt Count 413 10^3/cmm (157-399) H 06/25/24 21:00 MPV 10.4 fL (7.4-10.4) 06/25/24 21:00 Neut % (Auto) 45.4 % 06/25/24 21:00 Lymph % (Auto) 43.1 % 06/25/24 21:00 [place] % (Auto) 7.0 % 06/25/24 21:00 Eos % (Auto) 3.2 % 06/25/24 21:00 Baso % (Auto) 1.0 % 06/25/24 21:00 Neut # (Auto) 4.61 10^3/uL (1.8-7.7) 06/25/24 21:00 Lymph # (Auto) 4.4 10^3/uL (0.8-4.8) 06/25/24 21:00 [place] # (Auto) 0.7 10^3/uL (0.2-0.9) 06/25/24 21:00 Eos # (Auto) 0.3 10^3/uL (0.0-0.8) 06/25/24 21:00 Baso # (Auto) 0.1 10^3/uL (0.0-0.1) 06/25/24 21:00 Nucleated RBC % (auto) 0 % 06/25/24 21:00 Nucleated RBCs # 0.0 /100WBC 06/25/24 21:00 ESR 16 mm/hr (0-15) H 06/25/24 21:00 Sodium 139 mmol/L (136-145) 06/25/24 21:00 Potassium 3.8 mmol/L (3.5-5.1) 06/25/24 21:00 Chloride 104 mmol/L (98-107) 06/25/24 21:00 Carbon Dioxide 24 mmol/L (22-29) 06/25/24 21:00 Anion Gap 14.8 (5-19) 06/25/24 21:00 BUN 14 mg/dL (6-20) 06/25/24 21:00 Creatinine 0.8 mg/dL (0.5-0.9) 06/25/24 21:00 GFR Calculation 73.4 mL/min (90-130) L 06/25/24 21:00 Glucose 106 mg/dL (65-115) 06/25/24 21:00 Calculated Osmolality 289 mOsm/kg (285-295) 06/25/24 21:00 Calcium 8.4 mg/dL (8.5-10.5) L 06/25/24 21:00 Magnesium 1.8 mg/dL (1.7-2.3) 06/25/24 21:00 Total Bilirubin 0.2 mg/dL (0.15-1.2) 06/25/24 21:00 AST 18 U/L (0-32) 06/25/24 21:00 ALT 13 U/L (0-33) 06/25/24 21:00 Alkaline Phosphatase 114 U/L (35-105) H 06/25/24 21:00 C-Reactive Protein 3.0 mg/L (0.0-4.9) 06/25/24 21:00 Total Protein 7.1 g/dL (6.6-8.7) 06/25/24 21:00 Albumin 4.2 g/dL (3.5-5.2) 06/25/24 21:00 Globulin 2.9 g/dL (1.3-4.6) 06/25/24 21:00 TSH 2.86 uIU/mL (0.27-4.20) 06/25/24 21:00 Urine Color Yellow (Yellow) 06/25/24 22:49 Urine Appearance Clear (CLEAR) 06/25/24 22:49 Urine pH 5.5 (5-7) 06/25/24 22:49 Ur Specific [place] 1.018 (1.005-1.030) 06/25/24 22:49 Urine Protein Negative (Negative) 06/25/24 22:49 Urine Glucose (UA) Negative (Normal) 06/25/24 22:49 Urine Ketones Negative (Negative) 06/25/24 22:49 Urine Blood Negative (Negative) 06/25/24 22:49 Urine Nitrate Negative (Negative) 06/25/24 22:49 Urine Bilirubin Negative (Negative) 06/25/24 22:49 Urine Urobilinogen 1.0 mg/dL (Negative) 06/25/24 22:49 Ur Leukocyte Esterase 1+ (Negative) A 06/25/24 22:49 Urine RBC 0-2 /hpf (0-2) 06/25/24 22:49 Urine WBC 11-20 /hpf (0-5) H 06/25/24 22:49 Ur Squamous Epith Cells 6-10 /hpf (0-5) 06/25/24 22:49 Amorphous Sediment Not Reportable 06/25/24 22:49 Urine Bacteria 1+ /hpf (NONE) H 06/25/24 22:49 Hyaline Casts 0-4 /lpf H 06/25/24 22:49 All radiology interpretation(s) finalized by discharge Discharge Plan Discharge Patient Disposition: Home Clinical Impression: Paresthesia and pain of left extremity Condition: Stable Prescriptions: No Action duloxetine 30 mg capsule,delayed release(DR/EC) 30 mg PO DAILY meloxicam 15 mg tablet 15 mg PO DAILY 30 Days Qty: 30 1RF omeprazole 20 mg capsule,delayed release(DR/EC) 20 mg PO DAILY ropinirole 1 mg tablet 0.5 mg PO BID lisinopril 20 mg tablet 20 mg PO BID aspirin [Adult Aspirin Regimen] 81 mg tablet,delayed release (DR/EC) 81 mg PO DAILY potassium gluconate 500 mg (83 mg) tablet 500 mg PO DAILY amlodipine 5 mg tablet 5 mg PO DAILY oxycodone-acetaminophen 5-325 mg tablet 1 tab PO Q8H PRN (Reason: Pain) gabapentin 300 mg capsule 300 mg PO TID Qty: 90 2RF Discharge Orders: Discharge ED (Routine); Ordered 06/25/24 Ordered By: Des Gamez Referrals: Regina Archer MD [Primary Care Provider] - 1 week Patient Instructions: Paresthesia (ED) Activity Restrictions/Additional Instructions: Thank you for choosing [facility] for your healthcare needs today. Please realize that you were seen in the emergency department and that we are providing you with an emergency medical screening exam and this may not be a complete and all exclusive of all testing and/or medical workup we may need to determine your element or severity of your illness. It is very important that you follow-up as instructed with your primary care provider or specialist for the additional evaluation and to discuss your medical treatment plan. You may return to the emergency department should you have concerns or if your condition changes or worsens in any way. Coding Level of Care Code ED [employer] Cutter Hand for Saurabh Saucedo
[2024-06-25 22:20] LABS: Erythrocyte Sedimentation Rate 16 mm/hr (0-15)
[2024-06-25 22:22] VITALS: BP 145/110; PULSE 77; O2SAT 98
[2024-06-25 22:24] LABS: Albumin Level 4.2 g/dL (3.5-5.2); Alkaline Phosphatase 114 U/L (35-105); Anion Gap 14.8 (5-19); Aspartate Amino Transferase 18 U/L (0-32); Blood Urea Nitrogen 14 mg/dL (6-20); Calcium 8.4 mg/dL (8.5-10.5); Carbon Dioxide 24 mmol/L (22-29); Chloride 104 mmol/L (98-107); Creatinine Clr Calc Pharmacy 82.6047; Globulin 2.9 g/dL (1.3-4.6); Glomerular Filtration Rate 73.4 mL/min (90-130); Glucose 106 mg/dL (65-115); Magnesium 1.8 mg/dL (1.7-2.3); Osmolality Calculated 289 mOsm/kg (285-295); Potassium 3.8 mmol/L (3.5-5.1); Sodium 139 mmol/L (136-145); Thyroid Stimulating Hormone 2.86 uIU/mL (0.27-4.20); Total Bilirubin 0.2 mg/dL (0.15-1.2); Total Protein 7.1 g/dL (6.6-8.7)
[2024-06-25 22:34] LABS: Alanine Aminotransferase 13 U/L (0-33)
[2024-06-25 22:47] LABS: Basophils # 0.1 10^3/uL (0.0-0.1); Eosinophils # 0.3 10^3/uL (0.0-0.8); Eosinophils % 3.2 %; Hematocrit 41.2 % (36-47); Lymphocytes # 4.4 10^3/uL (0.8-4.8); Lymphocytes % 43.1 %; Mean Corpuscular Hemoglobin 31.9 pg (27-33); Mean Corpuscular Volume 96.5 fl (85-98); Mean Platelet Volume 10.4 fL (7.4-10.4); Monocytes # 0.7 10^3/uL (0.2-0.9); Neutrophils # 4.61 10^3/uL (1.8-7.7); Neutrophils % 45.4 %; Nucleated Red Blood Cells % 0 %; Platelet Count 413 10^3/cmm (157-399); Red Blood Count 4.27 10^6/uL (3.85-5.65); Red Cell Distribution Width 13.2 % (12.1-15.1); White Blood Count 10.16 10^3/uL (3.29-11.43)
[2024-06-25 22:52] VITALS: BP 141/92; PULSE 73; O2SAT 95
[2024-06-25 22:56] LABS: Bilirubin Urine Negative (Negative); Blood Urine Negative (Negative); Glucose Urine UA Negative (Normal); Ketones Urine Negative (Negative); Leukocyte Esterase Urine 1+ (Negative); Nitrate Urine Negative (Negative); Protein Urine Negative (Negative); Specific Gravity, Urine 1.018 (1.005-1.030); Urine Appearance Clear (CLEAR); Urine Color Yellow (Yellow); pH Urine 5.5 (5-7)
[2024-06-25 23:00] VITALS: BP 134/91; PULSE 77; O2SAT 96
[2024-06-25 23:01] LABS: Add Urine Microscopic? YES; Bacteria Urine 1+ /hpf; Hyaline Casts Urine 0-4 /lpf; RBC Urine 0-2 /hpf (0-2)
[2024-06-25 23:54] VITALS: BP 148/111; PULSE 77; O2SAT 97
== END 2024-06-25 23:50 | disposition home or self-care (01) ==
PROVIDERS: Emergency Provider Emergency Medicine; PCP Family Medicine
DX: R20.2 Paresthesia of skin (principal); M79.605 Pain in left leg; F17.210 Nicotine dependence, cigarettes, uncomplicated
CPT/HCPCS: 73502; 80053; 81001; 83735; 84443; 85025; 85651; 86140; 99284

== ENCOUNTER 2024-07-11 12:35 | Outpatient (RCR) | payer MEDICARE, MEDICAID, SELFPAY | END 2024-08-06 23:59 | disposition home or self-care (01) | LOC: SPT 12:35 | PROVIDERS: Visit Provider Orthopaedic Surgery | DX: M54.9 Dorsalgia, unspecified (principal); G89.29 Other chronic pain | CPT/HCPCS: 97032; 97110; 97161 ==

== ENCOUNTER 2024-08-03 13:19 | Emergency (ER) | payer MEDICARE, MEDICAID, SELFPAY ==
[2024-08-03] VITALS (17 sets, daily range): BP systolic 89–135; BP diastolic 37–85; PULSE 61–72; RESP 11–22; TEMP 36.3; O2SAT 94–100; BMI 33.5
--- NOTE | 2024-08-03 13:24 | XRR_ITS ---
PROCEDURE INFORMATION: Exam: XR Left Wrist Exam date and time: 08/03/2024 1:39 PM Age: 59 years old Clinical indication: Injury or trauma; Patient HX: Lt wrist/hand pain post fall TECHNIQUE: Imaging protocol: Radiologic exam of the left wrist. Views: 3 or more views. COMPARISON: CR (UP EXM, ) 08/03/2024 1:37 PM FINDINGS: Bones/joints: There is an oblique fracture through the distal fibular metaphysis with dorsal displacement angulation. Small ossicle or small osseous fragment adjacent to the ulnar styloid. There is also comminuted fracture through the distal radial metaphysis with possible extension to the radiocarpal surface. This also has dorsal displacement angulation. There is joint space loss with articular surface sclerosis in osseous spurring at the triscaphe joint and 1st carpometacarpal joint. Mild degenerative change at the 1st metacarpophalangeal joint. No aggressive osseous lesion is seen. Soft tissues: Dorsal soft tissue swelling. XR/XR wrist LT min 3V* [id number] IMPRESSION: 1. Distal radial and ulnar fractures with associated dorsal angulation and displacement. The radial fracture may extend to the radiocarpal articular surface. 2. Scattered degenerative changes.
--- NOTE | 2024-08-03 13:24 | XRR_ITS ---
PROCEDURE INFORMATION: Exam: XR Left Hand Exam date and time: 08/03/2024 1:37 PM Age: 59 years old Clinical indication: Hand and wrist; Left; Patient HX: Lt wrist/hand pain post fall TECHNIQUE: Imaging protocol: Radiologic exam of the left hand. Views: 3 or more views. COMPARISON: No relevant prior studies available. FINDINGS: Bones/joints: There is an oblique fracture through the distal fibular metaphysis with dorsal displacement angulation. Small ossicle or small osseous fragment adjacent to the ulnar styloid. There is also comminuted fracture through the distal radial metaphysis with possible extension to the radiocarpal surface. This also has dorsal displacement angulation. There is joint space loss with articular surface sclerosis in osseous spurring at the triscaphe joint and 1st carpometacarpal joint. Mild degenerative change at the 1st metacarpophalangeal joint. No aggressive osseous lesion is seen. Soft tissues: Dorsal soft tissue swelling. XR/XR hand LT min 3V* [id number] IMPRESSION: 1. Distal radial and ulnar fractures with associated dorsal angulation and displacement. The radial fracture may extend to the radiocarpal articular surface. 2. Scattered degenerative changes.
--- NOTE | 2024-08-03 14:05 | W.ED.EXTPRO ---
HPI - Extremity Problem General: Chief complaint: Extremity Injury, Upper Stated complaint: L.hand injury Time Seen by Provider: 08/03/24 13:57 Source: patient Mode of arrival: ambulatory Limitations: no limitations History of Present Illness: 59-year-old female states she had fell going up stairs states she had landed on her left wrist has obvious deformity to the left wrist she has pain left wrist she rates a 8 out of 10 much worse with palpation or movement she denies any other injuries denies hitting her head. Associated symptoms: Deny chest pain, fever(s) or rash Related Data Home Medications Medication Instructions Recorded Confirmed aspirin 81 mg tablet,delayed 81 mg PO DAILY 09/13/19 08/03/24 release (Adult Aspirin Regimen) lisinopril 20 mg tablet 20 mg PO BID 09/13/19 08/03/24 omeprazole 20 mg capsule,delayed 20 mg PO DAILY 09/13/19 08/03/24 release duloxetine 30 mg capsule,delayed 30 mg PO DAILY 04/23/21 08/03/24 release oxycodone-acetaminophen 5 mg-325 1 tab PO Q8H PRN Pain 02/14/23 08/03/24 mg tablet potassium chloride 10 mEq 20 meq PO DAILY 08/03/24 08/03/24 capsule,extended release ropinirole 0.5 mg tablet 1 mg PO QPM 08/03/24 08/03/24 Previous Rx's Medication Instructions Recorded meloxicam 15 mg tablet 15 mg PO DAILY 30 days #30 tabs 05/20/21 gabapentin 300 mg capsule 300 mg PO TID pain #90 caps 10/23/23 hydrocodone 5 mg-acetaminophen 325 1 tab PO Q6H PRN pain #14 tabs 08/03/24 mg tablet Allergies Allergy/AdvReac Type Severity Reaction Status Date / Time adhesive tape Allergy ALGY-Redness Verified 08/03/24 13:51 of Skin fentanyl AdvReac ITCHING Verified 08/03/24 13:51 Review of Systems Const: Denies: fever(s), chills, body aches or change in appetite ENMT: Denies: throat pain or dental pain Card: Denies: chest pain Resp: Denies: dyspnea GI: Denies: abdominal pain, nausea, vomiting or diarrhea Musc: Reports: extremity pain; Denies: neck pain or back pain Skin/Breast: Denies: rash Neuro: Denies: headache(s) PFSH ED PFSH: Medical History Left renal mass Encounter for long-term (current) use of NSAIDs Encounter for long-term (current) use of NSAIDs Chronic SI joint pain Tonsillectomy planned Opioid contract exists Encounter for long-term use of opiate analgesic Tobacco abuse counseling Smoker Chronic lumbosacral pain Surgical History H/O neck surgery History of appendectomy H/O tubal ligation History of carpal tunnel surgery of right wrist Family History Mother , at age 75 Hypertension Blood clots in brain Father Lung disease Seizures Heart disease Other Bleeding disorder CAD (coronary artery disease) Cancer Social History Smoking and tobacco/nicotine status: current every day tobacco/nicotine user (half a pack) cigarettes Packs smoked per day: 1 Alcohol intake: never Substance/Drug Use: never Lives independently: Yes Marital status: Current occupational status: disabled Physical Exam Const: COMMON NORMALS: no acute distress, patient oriented x3 and healthy appearing HENMT: COMMON NORMALS: normocephalic and atraumatic HEAD & SCALP: normocephalic and atraumatic Eye: COMMON NORMALS: conjunctivae normal CONJUNCTIVA: Yes conjunctivae normal Neck/C-Spine: COMMON NORMALS: full ROM and supple Chest: COMMONS NORMALS: normal inspection of the chest Resp: COMMON NORMALS: normal respiratory effort Cardio: COMMON NORMALS: regular rate RATE: regular rate Extremity: COMMON NORMALS: full ROM NARRATIVE EXTREMITY EXAM: Obvious deformity to the left wrist distal sensation intact Neuro: COMMON NORMALS: patient oriented x3, moves all extremities and no focal motor deficits Psych: COMMON NORMALS: mental status grossly normal, Normal thought process present and cooperative THOUGHT PROCESS: Normal thought process present Skin: COMMON NORMALS: no rashes or lesions noted and no wounds GENERAL SKIN EXAM: no rashes or lesions noted Procedures Orthopedic Fracture Reduction Fracture #1: Time Out Performed: Yes Side: left Fracture Reduction Location: humerus and radius Analgesia: procedural sedation Technique: direct manipulation Post Reduction X-rays Demonstrate: anatomical reduction Post-reduction neuro exam: intact Post-reduction vascular exam: intact Splint Applied: Yes Procedural Sedation Indication: fracture/dislocation reduction ASA Class: II Time of Last PO Intake: 11:00 Preparation: alarm security or surveillance monitor applied and pulse oximeter IV Propofol dose (mg): 50 Complications: none Course Vital Signs: Vital signs: Vital Signs Temperature 97.4 F L 08/03/24 13:51 Pulse Rate 65 08/03/24 14:55 Respiratory Rate 17 08/03/24 14:50 Blood Pressure 119/74 08/03/24 14:55 Pulse Oximetry 98 08/03/24 14:55 MDM - Extremity (Nontraumatic) Medical Decision Making Patient presents here with a wrist fracture did reduce wrist placed splint we will get her follow-up orthopedics she is to follow-up as scheduled no other injuries noted return if worsening Medical Records I reviewed the patient's medical records. Lab Data Radiology Impressions Hand X-Ray 08/03/24 13:24 IMPRESSION: 1. Distal radial and ulnar fractures with associated dorsal angulation and displacement. The radial fracture may extend to the radiocarpal articular surface. 2. Scattered degenerative changes. Wrist X-Ray 08/03/24 14:31 IMPRESSION: Interval reduction and casting without evidence of new injury or complication. All radiology interpretation(s) finalized by discharge Discharge Plan Discharge Patient Disposition: Home Clinical Impression: Left wrist fracture Qualifiers: Encounter type: initial encounter Fracture type: closed Qualified Code(s): S62.102A - Fracture of unspecified carpal bone, left wrist, initial encounter for closed fracture Condition: Stable Prescriptions: New hydrocodone-acetaminophen 5-325 mg tablet 1 tab PO Q6H PRN (Reason: pain) Qty: 14 0RF No Action duloxetine 30 mg capsule,delayed release(DR/EC) 30 mg PO DAILY meloxicam 15 mg tablet 15 mg PO DAILY 30 Days Qty: 30 1RF omeprazole 20 mg capsule,delayed release(DR/EC) 20 mg PO DAILY lisinopril 20 mg tablet 20 mg PO BID aspirin [Adult Aspirin Regimen] 81 mg tablet,delayed release (DR/EC) 81 mg PO DAILY oxycodone-acetaminophen 5-325 mg tablet 1 tab PO Q8H PRN (Reason: Pain) gabapentin 300 mg capsule 300 mg PO TID Qty: 90 2RF potassium chloride 10 mEq capsule, extended release 20 meq PO DAILY ropinirole 0.5 mg tablet 1 mg PO QPM Discharge Orders: Discharge ED (Routine); Ordered 08/03/24 Ordered By: Mindy Salgado Referrals: Tino Douglas DO [Physician] - 4-7 days Discharge Diet: Advance as tolerated Discharge Activity: Resume usual activity Patient Instructions: Wrist Fracture in Adults (ED), Opioid Safety Coding Level of Care Code ED Cae Engineer for Saurabh Saucedo
[2024-08-03] MEDS: ondansetron 2 mg/ML SDV 2 mL 4 MG IVP (14:24)
[2024-08-03] MEDS: morphine 4 mg/mL SDV 1 mL IVP (14:24)
--- NOTE | 2024-08-03 14:31 | XRR_ITS ---
PROCEDURE INFORMATION: Exam: XR Left Wrist Exam date and time: 08/03/2024 2:36 PM Age: 59 years old Clinical indication: Injury or trauma; Fall; Other: Fracture; Additional info: Post reduction TECHNIQUE: Imaging protocol: Radiologic exam of the left wrist. Views: 1 or 2 views. COMPARISON: CR (UP EXM, ) 08/03/2024 1:39 PM FINDINGS: Bones/joints: Interval reduction and casting of the distal radial and ulnar fractures from prior. There is improved, near anatomic alignment. Degenerative changes again noted at the triscaphe, 1st carpometacarpal and 1st metacarpophalangeal joints. Soft tissues: Normal. Other findings: No new injury or interval complication is radiographically apparent. XR/XR wrist LT 2V [id number] IMPRESSION: Interval reduction and casting without evidence of new injury or complication.
[2024-08-03] MEDS: sodium chloride 0.9% 1,000 ML 999 ML IV (14:35)
[2024-08-03] MEDS: propofol 10 mg/mL SDV 20 mL 50 MG IVP ×2 (14:37→14:57)
--- NOTE | 2024-08-03 14:51 | PC.NURSE ---
Conscious Sedation: available in room prior to start: suction, adult ambu bag, adult nasal cannula, adult non-rebreather, suction; consent form signed pt placed on cardiac rehab nurse, q5min b/p, pulse ox prior to start of procedure assessed IV patency prior to procedure this nurse, second nurse, respiratory therapy, ED physician at bedside Time-Out: @1436 Start: @1437 Stop: @1443 @1424: 4mg Morphine & 4mg Zofran administered for pain @1437: 3L NC placed on pt @1437: 5mg Propofol administered IVP via Dr. Salgado @1440: x-ray obtained, sugar-tong splint placed by this nurse and ED physician @1443: second x-ray obtained post splint @1443: pt on room air, oxygen sat 100% @1444: pt awake, alert; slow to respond, respirations even and unlabored.
--- NOTE | 2024-08-03 15:33 | PC.NURSE ---
pt sitting on side of bed, denies any further concerns or needs, pt denies dizziness. pt states ready to go home
--- NOTE | 2024-08-05 14:52 | DCPLANNER ---
message sent to ortho for er f/u
== END 2024-08-03 15:42 | disposition home or self-care (01) ==
PROVIDERS: Emergency Provider Emergency Medicine
DX: S62.102A Fracture of unspecified carpal bone, left wrist, initial encounter for closed fracture (principal); Z79.82 Long term (current) use of aspirin; W19.XXXA Unspecified fall, initial encounter; F17.210 Nicotine dependence, cigarettes, uncomplicated
CPT/HCPCS: 25605; 73100; 73110; 73130; 94799; 96361; 96374; 96375; 99152; 99285; J2270; J2405; J2704; J7030

== ENCOUNTER → 2024-08-13 14:28 | Outpatient (BNVA) | payer MEDICAID, MEDICARE, SELFPAY | PROVIDERS: Visit Provider Orthopaedic Surgery | DX: S52.532A Colles' fracture of left radius, initial encounter for closed fracture (principal); X58.XXXA Exposure to other specified factors, initial encounter | CPT/HCPCS: 36415; 73110; 80053; 81001; 85025; 99214 ==

== ENCOUNTER 2024-08-16 05:51 | Day surgery (SDC) | payer MEDICARE, MEDICAID, SELFPAY ==
[2024-08-16] VITALS (17 sets, daily range): BP systolic 115–147; BP diastolic 68–113; PULSE 64–78; RESP 13–23; TEMP 36.1–36.6; O2SAT 92–99
--- NOTE | 2024-08-16 06:14 | ANES.PREANE2 ---
Pre-Anesthetic Assessment Height/Weight: Height 5 ft 4 in Preop Diagnosis: Distal radius fracture Operation Date: 08/16/24 07:30 Proposed Procedures p ORIF Wrist ORIF Distal Radius(Left) - Edis Lemons DO Was Beta Marc taken within 24 hours: N/A Was Clonidine taken within 24 hours: N/A Social Tobacco and No alcohol Exam alert, oriented x 3, clear to auscultation bilaterally and regular rate & rhythm Airway Submandibular: within normal limits Cervical ROM: within normal limits Mallampati: Class III Dentition: false Anesthetic Plan ASA status: 3 Anesthesia: General Other: No prior issues with anesthesia NPO since yesterday History of hypertension on amlodipine and lisinopril GERD on omeprazole Current smoker Chronic oxycodone use Labs 08/13/2024 reviewed and acceptable for procedure Plan on general anesthesia with postop nerve block Medications/Allergies Home Medications Medication Instructions Recorded Confirmed Last Taken Type aspirin 81 mg tablet,delayed 81 mg PO DAILY 09/13/19 08/15/24 08/15/24 History release (Adult Aspirin Regimen) lisinopril 20 mg tablet 20 mg PO BID 09/13/19 08/15/24 08/15/24 History omeprazole 20 mg capsule,delayed 20 mg PO DAILY 09/13/19 08/15/24 08/15/24 History release duloxetine 30 mg capsule,delayed 30 mg PO DAILY 04/23/21 08/15/24 08/15/24 History release meloxicam 15 mg tablet 15 mg PO DAILY 30 days #30 tabs 05/20/21 08/15/24 08/15/24 Rx oxycodone-acetaminophen 5 mg-325 1 tab PO Q8H PRN Pain 02/14/23 08/15/24 08/15/24 History mg tablet gabapentin 300 mg capsule 300 mg PO TID pain #90 caps 10/23/23 08/15/24 08/15/24 Rx potassium chloride 10 mEq 20 meq PO DAILY 08/03/24 08/15/24 08/15/24 History capsule,extended release ropinirole 0.5 mg tablet 1 mg PO QPM 08/03/24 08/15/24 08/15/24 History amlodipine 5 mg tablet 5 mg PO DAILY 08/15/24 08/15/24 08/15/24 History Allergies Allergy/AdvReac Type Severity Reaction Status Date / Time adhesive tape Allergy ALGY-Redness Verified 08/13/24 13:54 of Skin fentanyl AdvReac ITCHING Verified 08/13/24 13:54 [facility] Anesthesia Medical History Left renal mass Encounter for long-term (current) use of NSAIDs Encounter for long-term (current) use of NSAIDs Chronic SI joint pain Tonsillectomy planned Opioid contract exists Encounter for long-term use of opiate analgesic Tobacco abuse counseling Smoker Chronic lumbosacral pain Surgical History H/O neck surgery History of appendectomy H/O tubal ligation History of carpal tunnel surgery of right wrist Family History Mother , at age 75 Hypertension Blood clots in brain Father Lung disease Seizures Heart disease Other Bleeding disorder CAD (coronary artery disease) Cancer Social History Smoking and tobacco/nicotine status: unknown if used tobacco/nicotine Alcohol intake: never Substance/Drug Use: never Lives independently: Yes Marital status: Current occupational status: disabled Data Anesthesia Cardiac Studies: No Data to Display
[2024-08-16] MEDS: sodium chloride 0.9% 1,000 ML 30 ML IV (06:55)
--- NOTE | 2024-08-16 07:14 | W.PM.OPSUD ---
Surgery/Procedure H&P Update DATE OF PROCEDURE: August 16, 2024 DATE H&P PERFORMED: 08/13/24 H&P UPDATE INFORMATION: I have reviewed H&P completed within last 30 days, I have examined patient prior to procedure and No changes to prior documentation PREOP DIAGNOSIS: Lumbar stenosis with neurogenic claudication PLANNED PROCEDURE: Operation Date: 08/16/24 07:30 Proposed Procedures p ORIF Wrist ORIF Distal Radius(Left) - Edis Lemons DO
[2024-08-16] MEDS: ceFAZolin 2,000 mg SDV 2000 MG IVP (07:46)
--- NOTE | 2024-08-16 08:49 | XR_ITS ---
WS: [id number] C-ARM RADIOGRAPHS LEFT WRIST; 3 IMAGES HISTORY: OR PICS COMPARISON: 08/13/2024 Intraoperative imaging during volar plate and screw fixation of the distal radial fracture which is n ow in good position and alignment. Nondisplaced, not fixated distal ulnar fracture. XR/XR wrist LT 2V [id number] IMPRESSION: Status post ORIF of distal radial fracture.
--- NOTE | 2024-08-16 08:49 | PM.OP ---
Operative Report Date of procedure: August 16, 2024 Pre-op diagnosis: Left extra-articular distal radius fracture Post-op diagnosis: same Procedure done: Open reduction internal fixation of left extra-articular distal radius fracture Surgeon: Edis Lemons DO Estimated blood loss (mL): 5 Procedure: Open reduction internal fixation of left extra-articular distal radius fracture Patient brought the op suite after an Gonasi was placed in the supine position. All areas appear well-padded. Patient's prepped draped in also fashion. Esmarch was used to and tourniquet was put up at 250 mmHg. Skin incision made over the volar aspect of the wrist. The FCR was identified and retracted ulnarly. Radial artery was identified. The pronator quadratus was reflected ulnarly. The fracture was identified reduced. A [place] plate was then placed 3 screws were placed distally these were locking screws. In a cortical screw was placed initially to suck the plate down to bone and help reduce the volar tilt of the fracture. And then locking screws placed most proximally. AP lateral fluoroscopy showed the hardware and fracture in good position. Wounds were irrigated and closed with Vicryl and Monocryl suture. Sterile dressings were applied and a volar splint was placed. Patient was transferred to the PACU in stable condition.
--- NOTE | 2024-08-16 09:15 | ANES.PROC ---
Anesthesia Procedures Procedure/Date: 08/16/24 Nerve Block ^: Nerve Block 1: Main Anesthesia: general anesthesia Time Out Performed: Yes Consent: requested by attending/covering physician and from patient Nerve block location: supraclavicular Anesthesia monitors applied: pulse oximetry, EKG, BP cuff and oxygen Nerve block position: supine Anesthetic Used: ropivicaine 0.5% Amount of anesthesia used (mL): 30 Ultrasound used to: recognize landmarks Nerve Stimulator Used?: Yes Interscalene/Femoral BLK: other needle (pjunk 4inch) Injection: neg aspiration of heme Patient Tolerated Procedure: well Complications: none Additional Comments: Physical exam was performed prior to nerve block placement, moving all fingers
[2024-08-16] MEDS: HYDROmorphone 1 mg/mL INJ 1 mL 0.5 MG IVP (09:28)
[2024-08-16] MEDS: oxyCODONE-APAP 5-325 mg Tablet 1 TAB PO (09:57)
--- NOTE | 2024-08-16 10:29 | ANE.PACU2 ---
Inpatient post-anesthesia follow up: Airway intact: Yes Vital signs: Temperature 97.0 F Pulse Rate 72 Respiratory Rate 18 Blood Pressure 124/75 Pulse Oximetry 94 Oxygen Delivery Me thod Room Air Oxygen Flow Rate Fraction of Inspir ed Oxygen Hydration adequate: Yes Nausea and vomiting: No Pain level: 1 Mental status: Baseline
== END 2024-08-16 10:29 | disposition home or self-care (01) ==
PROVIDERS: PCP Family Medicine; Visit Provider Orthopaedic Surgery
PROC: (CPT 25608; principal; 2024-08-16 07:20)
DX: S52.552A Other extraarticular fracture of lower end of left radius, initial encounter for closed fracture (principal); X58.XXXA Exposure to other specified factors, initial encounter; I10 Essential (primary) hypertension; K21.9 Gastro-esophageal reflux disease without esophagitis; F17.200 Nicotine dependence, unspecified, uncomplicated; Z79.891 Long term (current) use of opiate analgesic; Z79.82 Long term (current) use of aspirin; Z79.1 Long term (current) use of non-steroidal anti-inflammatories (NSAID)
CPT/HCPCS: 25608; 73100; 76000; C1713; J0690; J1100; J1171; J2250; J2405; J2704; J3010; J7030

== ENCOUNTER → 2024-08-29 09:06 | Outpatient (BNVA) | payer MEDICARE, MEDICAID, SELFPAY | PROVIDERS: PCP Family Medicine; Visit Provider Orthopaedic Surgery | DX: S52.532A Colles' fracture of left radius, initial encounter for closed fracture (principal); X58.XXXA Exposure to other specified factors, initial encounter | CPT/HCPCS: 99024 ==

== ENCOUNTER → 2024-09-10 14:18 | Outpatient (BNVA) | payer MEDICARE, MEDICAID, SELFPAY | PROVIDERS: PCP Family Medicine; Visit Provider Orthopaedic Surgery | DX: M48.061 Spinal stenosis, lumbar region without neurogenic claudication (principal) | CPT/HCPCS: 99214 ==

== ENCOUNTER 2024-10-02 09:39 | Day surgery (SDC) | payer MEDICARE, MEDICAID, SELFPAY ==
[2024-10-02] VITALS (7 sets, daily range): BP systolic 141–155; BP diastolic 7–92; PULSE 59–71; RESP 15–16; TEMP 36.1–36.6; O2SAT 93–100; BMI 34.5
[2024-10-02] MEDS: sodium chloride 0.9% 1,000 ML 30 ML IV (10:11)
--- NOTE | 2024-10-02 10:44 | ANES.PREANE2 ---
Pre-Anesthetic Assessment Height/Weight: Height 1.6 m Weight 88.451 kg Preop Diagnosis: Lumbar stenosis with neurogenic claudication Operation Date: 10/02/24 11:25 Proposed Procedures p Lumbar Decompression 84666,(Not Applicable) - Edis Lemons DO Familial anesthetic complications: None Was Beta Marc taken within 24 hours: N/A Was Clonidine taken within 24 hours: N/A Last intake: Intake Last Liquid Date 10/01/24 Last Liquid Time 22:00 Last Solid Date 10/01/24 Last Solid Time 19:00 Social Tobacco and No alcohol Exam alert, oriented x 3, clear to auscultation bilaterally and regular rate & rhythm Airway Dentition: false CV/HEM Hypertension GI Gastroesophageal Reflux Disease Anesthetic Plan ASA status: 3 Anesthesia: General Risk of > 500 ml blood loss (7ml/kg in children): No Medications/Allergies Home Medications ?Medication ?Instructions ?Recorded ?Confirmed ?Last Taken ?Type aspirin 81 mg tablet,delayed 81 mg PO DAILY 09/13/19 10/01/24 09/23/24 History release (Adult Aspirin Regimen) lisinopril 20 mg tablet 20 mg PO BID 09/13/19 10/01/24 10/01/24 History omeprazole 20 mg capsule,delayed 20 mg PO DAILY 09/13/19 10/01/24 10/01/24 History release duloxetine 30 mg capsule,delayed 30 mg PO DAILY 04/23/21 10/01/24 10/01/24 History release meloxicam 15 mg tablet 15 mg PO DAILY 30 days #30 tabs 05/20/21 10/01/24 09/23/24 Rx gabapentin 300 mg capsule 300 mg PO TID pain #90 caps 10/23/23 10/01/24 10/01/24 Rx potassium chloride 10 mEq 20 meq PO DAILY 08/03/24 10/01/24 10/01/24 History capsule,extended release ropinirole 0.5 mg tablet 1 mg PO BID 08/03/24 10/01/24 10/01/24 History amlodipine 5 mg tablet 5 mg PO DAILY 08/15/24 10/01/24 10/01/24 History Allergies Allergy/AdvReac Type Severity Reaction Status Date / Time adhesive tape Allergy ALGY-Redness Verified 08/13/24 13:54 of Skin fentanyl AdvReac ITCHING Verified 08/13/24 13:54 Current Medications Generic Name Dose Route Start Last Admin Trade Name Freq PRN Reason Stop Dose Admin Sodium Chloride 1,000 mls @ 30 mls/hr 10/02/24 09:45 10/02/24 10:11 Sodium Chloride 0.9% IV 10/03/24 09:44 30 mls/hr .Q24H IRINA Administration PFSH Anesthesia Medical History Left renal mass Encounter for long-term (current) use of NSAIDs Encounter for long-term (current) use of NSAIDs Chronic SI joint pain Tonsillectomy planned Opioid contract exists Encounter for long-term use of opiate analgesic Tobacco abuse counseling Smoker Chronic lumbosacral pain Surgical History H/O neck surgery History of appendectomy H/O tubal ligation History of carpal tunnel surgery of right wrist Family History Mother , at age 75 Hypertension Blood clots in brain Father Lung disease Seizures Heart disease Other Bleeding disorder CAD (coronary artery disease) Cancer Social History Smoking and tobacco/nicotine status: unknown if used tobacco/nicotine Alcohol intake: never Substance/Drug Use: never Lives independently: Yes Marital status: Current occupational status: disabled Data Anesthesia Cardiac Studies: No Data to Display
--- NOTE | 2024-10-02 12:00 | W.PM.OPSUD ---
Surgery/Procedure H&P Update DATE OF PROCEDURE: October 02, 2024 DATE H&P PERFORMED: 09/10/24 H&P UPDATE INFORMATION: I have reviewed H&P completed within last 30 days, I have examined patient prior to procedure and No changes to prior documentation PREOP DIAGNOSIS: Lumbar stenosis with neurogenic claudication PLANNED PROCEDURE: Operation Date: 10/02/24 11:25 Proposed Procedures p Lumbar Decompression 84227,(Not Applicable) - Edis Lemons DO
[2024-10-02] MEDS: ceFAZolin 2,000 mg SDV 2000 MG IVP (12:14)
[2024-10-02] MEDS: lidocaine-epi 1% 20 mL INJ 10 ML INJECTION (12:43)
[2024-10-02] MEDS: VANCOMYCIN ADD-Vantage 1,000 MG VIAL 1000 MG XX (13:39)
--- NOTE | 2024-10-02 13:46 | XR_ITS ---
WS: [id number] Lumbar spine, C-arm fluoroscopy views, 10/02/2024 Clinical Data: spinal decompression, or pic Comparison: Lumbar spine, 10/12/2023 Findings: Dr. Lemons performed a lumbar spinal decompression. XR/XR lumbar spine 1V [id number] Impression: Spinal decompression of the lumbar spine.
--- NOTE | 2024-10-02 13:59 | P.OP_ITS ---
Operative Report Date of procedure: October 02, 2024 Pre-op diagnosis: Lumbar stenosis neurogenic claudication Post-op diagnosis: same Procedure done: 1. L3-4 laminectomy with partial facetectomies 2. L4-5 laminectomy with partial facetectomies Surgeon: Edis Lemons DO Estimated blood loss (mL): 25 Procedure: 1. L3-4 laminectomy with partial facetectomies 2. L4-5 laminectomy with partial facetectomies Patient brought the op suite after an Gonasi was placed in the prone position. All areas impingement well-padded. Patient's prepped draped in sterile fashion. Skin incisions made over the L3-L5 levels. This was confirmed with C-arm guidance. Thoracolumbar fascia split and subperiosteal dissections made out to the facet joints of L3-4 L4-5. Retractors were placed. Spoke spinous process were taken down using the [place] rongeur. This was done at L4 and L5. Attention was brought to the L4-5 level first. The L4 laminectomy was performed using high-speed bur as well as Kerrison rongeur. The [place] rongeur was used to take down the laminectomy as well as medial aspect facet joint as well as take down the ligamentum flavum from L4 for L5. Scar tissue was on the left side was dissected out with a curette of the L5 nerve root was found to be completely freed up bilaterally around the pedicle. The L4 nerve was found to be complete freed up between the L4-5 foramen. Next attention was brought to doing the laminectomy at L 3. Allergy was performed using high-speed bur as well as Kerrison rongeurs. The once laminectomies completed was brought to the medial aspect of facet joints were taken down with a high-speed bur as well as Kerrison rongeur. The ligamentum flavum was taken down from L3-L4. The scar tissue was on the left side. This dissected out with a curved curette. The L3 nerves were traced out the L3-4 foramen as well as the the L4 nerves were traced around the L4 pedicles. Wounds were irrigated sterile dressing applied vancomycin powder was placed and patient's wound was closed in layered fashion with 0 Vicryl 2-0 Vicryl and Monoc ryl suture. Sterile dressing applied patient transferred to PACU in stable addition.
[2024-10-02] MEDS: HYDROcodone-acetaminophen 5-325 mg Tablet 1 TAB PO (15:05)
--- NOTE | 2024-10-02 15:30 | ANE.PACU2 ---
Inpatient post-anesthesia follow up: Airway intact: Yes Vital signs: Temperature 98 F Pulse Rate 71 Respiratory Rate 15 Blood Pressure 147/7 Pulse Oximetry 97 Oxygen Delivery Me thod Room Air Oxygen Flow Rate 6 Fraction of Inspir ed Oxygen Hydration adequate: Yes Nausea and vomiting: No Pain level: 1 Mental status: Baseline
== END 2024-10-02 15:32 | disposition home or self-care (01) ==
PROVIDERS: PCP Family Medicine; Visit Provider Orthopaedic Surgery
PROC: (CPT 63005; principal; 2024-10-02 11:15)
DX: M48.062 Spinal stenosis, lumbar region with neurogenic claudication (principal); I10 Essential (primary) hypertension; K21.9 Gastro-esophageal reflux disease without esophagitis; Z79.82 Long term (current) use of aspirin; Z79.899 Other long term (current) drug therapy; Z88.5 Allergy status to narcotic agent; Z91.09 Other allergy status, other than to drugs and biological substances; Z87.891 Personal history of nicotine dependence
CPT/HCPCS: 63047; 63048 ×2; 72020; 76000; J0690; J1100; J1171; J2405; J2704; J3010; J3370; J3490; J7030

== ENCOUNTER → 2024-10-15 13:39 | Outpatient (BNVA) | payer MEDICARE, MEDICAID, SELFPAY | PROVIDERS: PCP Family Medicine; Visit Provider Orthopaedic Surgery | DX: Z98.890 Other specified postprocedural states (principal) | CPT/HCPCS: 99024 ==

== ENCOUNTER → 2024-11-12 13:16 | Outpatient (BNVA) | payer MEDICARE, MEDICAID, SELFPAY | PROVIDERS: PCP Family Medicine; Visit Provider Orthopaedic Surgery | DX: Z98.890 Other specified postprocedural states (principal) | CPT/HCPCS: 99024 ==

== ENCOUNTER → 2024-12-24 13:10 | Outpatient (BNVA) | payer MEDICARE, MEDICAID, SELFPAY | PROVIDERS: PCP Family Medicine; Visit Provider Orthopaedic Surgery | DX: Z98.890 Other specified postprocedural states (principal) | CPT/HCPCS: 99024 ==

== ENCOUNTER → 2025-02-13 16:28 | Outpatient (BNVA) | payer MEDICARE, MEDICAID, SELFPAY | PROVIDERS: PCP Family Medicine; Visit Provider Nurse Practitioner Women's Health | DX: R68.82 Decreased libido (principal); M79.7 Fibromyalgia; K50.90 Crohn's disease, unspecified, without complications; R53.83 Other fatigue; N92.6 Irregular menstruation, unspecified | CPT/HCPCS: 82306; 82607; 82670; 82728; 83001; 83540; 84270; 84402; 84403 ==

== ENCOUNTER → 2025-06-20 14:56 | Outpatient (BNVA) | payer MEDICARE, MEDICAID, SELFPAY | PROVIDERS: PCP Family Medicine; Visit Provider Nurse Practitioner Women's Health | DX: R68.82 Decreased libido (principal); Z79.890 Hormone replacement therapy | CPT/HCPCS: 82670; 84403 ==

== ENCOUNTER 2025-06-26 10:33 | Outpatient (CLI) | payer MEDICARE, MEDICAID, SELFPAY ==
--- NOTE | 2025-06-26 10:30 | MM_ITS ---
WS: [id number] BILATERAL SCREENING DIGITAL TOMOSYNTHESIS MAMMOGRAM WITH CAD HISTORY: SCREENING COMPARISON: 05/30/2024, 12/27/2022 and 12/22/2021 Bilateral CC and MLO views with tomosynthesis and synthetic mammography submitted. Computer aided detection analyzed. Breast composition: The breasts are almost entirely fatty. No suspicious masses, microcalcifications or architectural distortion. Stable well-circumscribed mass upper outer quadrant LEFT breast measuring 7 x 9 x 9 mm. No suspicious mass or grouping of calcifications. MM/MM scr tomosynthesis [id number] IMPRESSION: BI-RADS: 2 - Benign. FOLLOW UP: 1 Year Follow-up
== END 2025-06-26 10:34 | disposition home or self-care (01) ==
LOC: MOBLMAM 10:36
PROVIDERS: PCP Family Medicine; Visit Provider Family Medicine
DX: Z12.31 Encounter for screening mammogram for malignant neoplasm of breast (principal); R92.313 Mammographic fatty tissue density, bilateral breasts; N63.21 Unspecified lump in the left breast, upper outer quadrant
CPT/HCPCS: 77063; 77067

== ENCOUNTER → 2025-07-10 13:53 | Outpatient (BNVA) | payer MEDICARE, MEDICAID, SELFPAY | PROVIDERS: PCP Family Medicine; Visit Provider Student in an Organized Health Care Education/Training Program | DX: Z12.11 Encounter for screening for malignant neoplasm of colon (principal) | CPT/HCPCS: 99024; 99203 ==

== ENCOUNTER → 2025-07-22 11:20 | Outpatient (BNVA) | payer MEDICARE, MEDICAID, SELFPAY | PROVIDERS: PCP Family Medicine; Visit Provider Nurse Practitioner Women's Health | DX: Z79.890 Hormone replacement therapy (principal) | CPT/HCPCS: 84403 ==